=== PATIENT | female | born 1945 | race Caucasian/White ===

== ENCOUNTER → 2016-09-24 | Outpatient (CLI) | payer BC ==
[~2016-09-24] MED LIST: ALBU1AER9 INH; CALC8.5C PO; ESCI1TAB10 PO; IMT100 PO; LEVO88TA PO; LORA0.5T12 PO; MAGNESIUM; MULT-614 PEG
--- NOTE | 2016-09-24 14:34 | MAMMOGRAPHY REPORT ---
BILATERAL DIGITAL SCREENING MAMMOGRAM WITH CAD: 09/24/2016 CLINICAL HISTORY: Routine screening. Patient has no complaints. TECHNIQUE: Bilateral CC, MLO and repeat right MLO views were obtained. Current study was also evalu ated with a Computer Aided Detection (CAD) system. COMPARISON: Comparison is made to exams dated: 09/19/2015 mammogram, 09/15/2014 mammogram, 09/06/2013 m ammogram, 09/03/2012 mammogram, 08/23/2010 mammogram, and 08/22/2009 mammogram - [facility] enter. BREAST COMPOSITION: The tissue of both breasts is heterogeneously dense, which may obscure small ma sses. FINDINGS: There is a focal asymmetry in the approximate 10:00 to 11:00 anterior left breast. Altho ugh this could represent normal overlapping fibroglandular tissue, additional spot compression tomos ynthesis views and possibly ultrasound are recommended. There are scattered benign-appearing coarse calcifications in the breasts. No other suspicious mass, architectural distortion or cluster of microcalcifications is seen. IMPRESSION: ACR BI-RADS CATEGORY 0: INCOMPLETE EVALUATION: NEED ADDITIONAL IMAGING EVALUATION The focal asymmetry in the anterior left breast needs additional evaluation. The patient will be called to schedule an appointment. Approximately 10% of breast cancers are not detected with mammography. A negative mammographic repor t should not delay biopsy if a clinically suggestive mass is present. Karen Andres M.D. ay/:09/24/2016 08:06:45 Custom Shop Worker: Marisela Mckenna, [facility] letter sent: Addl Imaging 0 BI-RADS Code: ACR BI-RADS Category 0: Incomplete Evaluation: Need Additional Imaging Evaluation
== END | disposition home or self-care (01) ==
LOC: C.MAMM 07:29
PROVIDERS: ATTEND Obstetrics & Gynecology
DX: Z12.31 Encounter for screening mammogram for malignant neoplasm of breast (principal)

== ENCOUNTER → 2016-10-01 | Outpatient (CLI) | payer BC ==
--- NOTE | 2016-10-01 13:33 | MAMMOGRAPHY REPORT ---
UNILATERAL LEFT DIGITAL DIAGNOSTIC MAMMOGRAM TOMOSYNTHESIS: 10/01/2016 CLINICAL HISTORY: Callback from screening mammogram for left breast asymmetry. TECHNIQUE: Breast tomosynthesis in addition to standard 2D mammography was performed. Spot dilcia lashawn left CC and MLO 2-D and tomosynthesis images were obtained. COMPARISON: Comparison is made to exams dated: 09/24/2016 mammogram, 09/19/2015 mammogram, 09/06/2013 m ammogram, 09/15/2014 mammogram, 09/03/2012 mammogram, and 08/29/2011 mammogram - [facility] enter. BREAST COMPOSITION: The tissue of the left breast is heterogeneously dense, which may obscure small masses. FINDINGS: The previously described asymmetry seen within the left breast effaces to a baseline appea lior on the additional views, with appearance of this region similar to multiple prior exams includ ing the 2010 and 2008 exams. No suspicious masses, architectural distortion, or other suspicious fi nding is seen in this region on the tomosynthesis images. Findings are benign and compatible with n ormal fibroglandular tissue. IMPRESSION: ACR BI-RADS CATEGORY 2: BENIGN The left breast asymmetry effaces on the additional views, and is benign and compatible with normal fibroglandular tissue. There is no mammographic evidence of malignancy. A 1 year screening mammogra m is recommended. The patient has been verbally notified of the results. Approximately 10% of breast cancers are not detected with mammography. A negative mammographic repor t should not delay biopsy if a clinically suggestive mass is present. Teresa Mae M.D. /:10/01/2016 09:47:18 Equipment Operation Instructor: Marisela Mckenna, [facility] letter sent: Normal 1/2 BI-RADS Code: ACR BI-RADS Category 2: Benign
== END | disposition home or self-care (01) ==
LOC: C.MAMM 09:13
PROVIDERS: ATTEND Obstetrics & Gynecology
DX: N64.89 Other specified disorders of breast (principal)

== ENCOUNTER → 2017-04-21 | Outpatient (CLI) | payer BC ==
[2017-04-21 09:50] LABS: BLOOD UREA NITROGEN 22 mg/dl (7-18); BUN/CREATININE RATIO 37.1 (10-20); CALCIUM 8.5 mg/dl (8.5-10.1); CARBON DIOXIDE 28 mmol/L (21-32); CHLORIDE 106 mmol/L (98-107); GLUCOSE 108 mg/dl (70-99); SODIUM 141 mmol/L (136-145)
[2017-04-21 09:58] LABS: ESTIMATED AVERAGE GLUCOSE 114 mg/dl; HA1C FLAG Normal (Normal)
[2017-04-21 10:03] LABS: CHOLESTEROL 189 mg/dl (0-200); CHOLESTEROL/HDL RATIO 1.9; HDL CHOLESTEROL 102 mg/dl; LDL CHOLESTEROL CALCULATED 76 mg/dl; TRIGLYCERIDES 55 mg/dl (0-150); VERY LOW DENSITY LIPOPROT CALC 11 mg/dl
== END | disposition home or self-care (01) ==
LOC: C.LAB1850 07:51
PROVIDERS: ATTEND Internal Medicine
DX: E03.9 Hypothyroidism, unspecified (principal); E88.81 Metabolic syndrome and other insulin resistance; R73.9 Hyperglycemia, unspecified

== ENCOUNTER → 2017-09-28 | Outpatient (CLI) | payer BC ==
--- NOTE | 2017-09-28 14:12 | MAMMOGRAPHY REPORT ---
BILATERAL DIGITAL SCREENING MAMMOGRAM TOMOSYNTHESIS WITH CAD: 09/28/2017 CLINICAL HISTORY: Routine screening. Patient has no complaints. TECHNIQUE: Breast tomosynthesis in addition to standard 2D mammography was performed. Current study was also evaluated with a Computer Aided Detection (CAD) system. COMPARISON: Comparison is made to exams dated: 10/01/2016 mammogram, 09/24/2016 mammogram, 09/19/2015 ma mmogram, 09/15/2014 mammogram, 09/06/2013 mammogram, and 09/03/2012 mammogram - [facility] er. BREAST COMPOSITION: The tissue of both breasts is heterogeneously dense, which may obscure small mas ses. FINDINGS: The parenchymal pattern is similar to prior mammograms. There are a few benign coarse taylor cifications bilaterally. No developing mass, architectural distortion or cluster of suspicious micro calcifications is seen in either breast. IMPRESSION: ACR BI-RADS CATEGORY 2: BENIGN There is no mammographic evidence of malignancy. A 1 year screening mammogram is recommended. The pa tient will receive written notification of the results. Approximately 10% of breast cancers are not detected with mammography. A negative mammographic report should not delay biopsy if a clinically suggestive mass is present. Karen Andres M.D. ay/:09/28/2017 13:40:44 Wood Sash And Frame Carpenter: Marisela RAMIREZ)(M), [facility] letter sent: Normal 1/2 BI-RADS Code: ACR BI-RADS Category 2: Benign
== END | disposition home or self-care (01) ==
LOC: C.MAMM 08:10
PROVIDERS: ATTEND Obstetrics & Gynecology
DX: Z12.31 Encounter for screening mammogram for malignant neoplasm of breast (principal)

== ENCOUNTER → 2017-10-21 | Outpatient (CLI) | payer BC ==
[2017-10-21 10:01] LABS: BLOOD UREA NITROGEN 15 mg/dl (7-18); CREATININE 0.58 mg/dl (0.60-1.20); GLUCOSE 103 mg/dl (70-99)
[2017-10-21 10:02] LABS: ALBUMIN 3.5 gm/dl (3.4-5.0); ALKALINE PHOSPHATASE 58 U/L (45-117); ALT/SGPT 33 U/L (12-78); AST/SGOT 18 U/L (15-37); CALCIUM 8.2 mg/dl (8.5-10.1); CARBON DIOXIDE 25 mmol/L (21-32); CHOLESTEROL 194 mg/dl (0-200); LDL CHOLESTEROL CALCULATED 86 mg/dl; POTASSIUM 3.9 mmol/L (3.5-5.1); SODIUM 139 mmol/L (136-145); TOTAL PROTEIN 7.2 gm/dl (6.4-8.2)
[2017-10-21 10:06] LABS: HEMOGLOBIN A1C 5.6 % (4.5-5.6)
== END | disposition home or self-care (01) ==
LOC: C.LAB1850 08:00
PROVIDERS: ATTEND Internal Medicine
DX: R73.9 Hyperglycemia, unspecified (principal); M85.80 Other specified disorders of bone density and structure, unspecified site; E03.9 Hypothyroidism, unspecified

== ENCOUNTER → 2018-01-01 | Day surgery (SDC) | payer BC ==
[2017-12-22 08:16] VITALS: Ht 148.6 cm; Wt 55.5 kg
[~2018-01-01] VITALS: Ht 148.6 cm; Wt 55.5 kg
[~2018-01-01] MED LIST changes: -ALBU1AER9 INH; +BUPR-79 PO; -ESCI1TAB10 PO; +LIDOCAINE HCL 2% 2 ML VIAL (20MG/ML) ONE; -MAGNESIUM; +MISCCAP80 PO; -MULT-614 PEG; +MULT-614 PO; +PROPOFOL IV EMULSION 10 MG/ML 20 ML VIAL ONE; +SERT-234 PO; +SLWMEC PO; +SODIUM CHLORIDE 0.9% 500ML 500 ML IV ONE; +VNTHFA/IN INH
--- NOTE | 2018-01-01 11:14 | Endo History and Physical ---
History & Physical Date of Service: Jan 01, 2018. Chief Complaint: History of polyps Referring Physician: Dr. Rosas Green History of Present Illness 72 yo CF who presents for colonoscopy secondary to history of colon polyps. Past Medical History Asthma, Anxiety, Thyroid Disease Past Surgical History Hx Cardiac Surgery: No Hx Internal Defibrillator: No Hx Pacemaker: No Hx Abdominal Surgery: No Hx of Implantable Prosthesis: No Hx Post-Op Nausea and Vomiting: No Hx Cancer Surgery: No Hx Thoracic Surgery: No Hx Orthopedic: Yes (REPAIR FINGER LACERATION) Hx Urinary Tract Surgery: No Family History None Social History Smoking Status: Never Smoker Hx Substance Use: No Hx Alcohol Use: No Allergies Coded Allergies: Dust (Verified Allergy, Unknown, COUGHING,CONGESTION, 12/22/17) Shellfish (Verified Allergy, Unknown, RASH,HIVES,DIARRHEA, 12/22/17) Ibuprofen (Verified Adverse Reaction, Unknown, SORE THROAT, 01/01/18) Sulfa Drugs (Verified Adverse Reaction, Unknown, THROAT CLOSING, 01/01/18) Sulindac (Verified Adverse Reaction, Unknown, "SORE THROAT", 01/01/18) Current Medications Reported Home Medications Medications Dose Route/Sig Max Daily Dose Days Date Category Probiotic (Probiotic Product) 1 Cap Cap 1 Tab PO QAM 12/22/17 Reported Slow-Mag Tab (Magnesium Chloride) 64 Mg Tabcr 64 Mg PO QPM 12/22/17 Reported Wellbutrin Sr (Bupropion HCl) 150 Mg Ertab 150 Mg PO QAM 12/22/17 Reported Zoloft (Sertraline HCl) 100 Mg Tab 100 Mg PO HS 12/22/17 Reported Ventolin Hfa (Albuterol) 200 Puffs/87472 Mcg Aers 2-4 Puffs INH Q6H 12/22/17 Reported Viactiv (Calcium W/ Vitamins D & K) 1 Chw Chw 1 Tab PO BID 07/27/14 Reported Imitrex (Sumatriptan Succinate) 100 Mg Tab 100 Mg PO UD PRN 07/27/14 Reported Lorazepam 0.5 Mg Tab 0.5 Mg PO BID PRN 07/27/14 Reported Synthroid (Levothyroxine Sodium) 88 Mcg Tab 88 Mcg PO QAM 07/27/14 Reported Centrum Silver Ultra Wome (Multiple Vitamins W/ Minerals) 1 Tab Tab 1 Tab PO QPM 07/27/14 Reported Vital Signs Weight (Kilograms): 55.45 Height (Feet): 4 Height (Inches): 10.5 Date Time Temp Pulse Resp B/P (MAP) Pulse Ox O2 Delivery O2 Flow Rate FiO2 01/01/18 10:56 36.8 69 18 148/66 (93) 95 Room Air Physical Exam General Appearance: WD/WN, no apparent distress Respiratory/Chest: Auscultation: breath sounds normal Cardiovascular: Heart Auscultation: RRR Abdomen: Bowel Sounds: normal Inspection & Palpation: soft, non-distended, no tenderness, guarding & rebound Assessment and Plan Assessment: 72 yo CF who presents for colonoscopy secondary to history of colon polyps. Plan: Proceed with colonoscopy.
--- NOTE | 2018-01-01 11:59 | Discharge Instructions ---
Endoscopy Patient Instructions Date / Procedure(s) Performed Jan 01, 2018. Colonoscopy Allergy Information Coded Allergies: Dust (Verified Allergy, Unknown, COUGHING,CONGESTION, 12/22/17) Shellfish (Verified Allergy, Unknown, RASH,HIVES,DIARRHEA, 12/22/17) Ibuprofen (Verified Adverse Reaction, Unknown, SORE THROAT, 01/01/18) Sulfa Drugs (Verified Adverse Reaction, Unknown, THROAT CLOSING, 01/01/18) Sulindac (Verified Adverse Reaction, Unknown, "SORE THROAT", 01/01/18) Discharge Date / Findings Jan 01, 2018. Colon polyp Internal hemorrhoids Medication Instructions OK to resume all medications today as prescribed Reported Home Medications Medications Dose Route/Sig Max Daily Dose Days Date Category Probiotic (Probiotic Product) 1 Cap Cap 1 Tab PO QAM 12/22/17 Reported Slow-Mag Tab (Magnesium Chloride) 64 Mg Tabcr 64 Mg PO QPM 12/22/17 Reported Wellbutrin Sr (Bupropion HCl) 150 Mg Ertab 150 Mg PO QAM 12/22/17 Reported Zoloft (Sertraline HCl) 100 Mg Tab 100 Mg PO HS 12/22/17 Reported Ventolin Hfa (Albuterol) 200 Puffs/74182 Mcg Aers 2-4 Puffs INH Q6H 12/22/17 Reported Viactiv (Calcium W/ Vitamins D & K) 1 Chw Chw 1 Tab PO BID 07/27/14 Reported Imitrex (Sumatriptan Succinate) 100 Mg Tab 100 Mg PO UD PRN 07/27/14 Reported Lorazepam 0.5 Mg Tab 0.5 Mg PO BID PRN 07/27/14 Reported Synthroid (Levothyroxine Sodium) 88 Mcg Tab 88 Mcg PO QAM 07/27/14 Reported Centrum Silver Ultra Wome (Multiple Vitamins W/ Minerals) 1 Tab Tab 1 Tab PO QPM 07/27/14 Reported Provider Instructions Activity Restrictions - No exercising or heavy lifting for 24 hours. - Do not drink alcohol the day of the procedure. - Do not drive a car or operate machinery until the day after the procedure. - Do not make any important decisions or sign important papers in 24 hours after the procedure. Following Day: - Return to full activity which may include returning to work/school. Diet Start your diet with liquids and light foods (jello, soup, juice, toast). Then eat your usual diet if not nauseated. Treatment For Common After Affects For mild abdominal pain, bloating, or excessive gas: - Rest - Eat lightly - Lie on right side Follow-Up Information Follow-up with Dr. Rosas Green as scheduled Anesthesia Information What You Should Know You have had a procedure that required some medicine to reduce anxiety and discomfort. This treatment is called moderate sedation. After receiving the treatment, you may be sleepy, but you will be able to breathe on your own. The effects of the treatment may last for several hours. Follow these instructions along with Activity/Diet recommendations noted above: * Do NOT do anything where dizziness or clumsiness would be dangerous. * Rest quietly at home today, then you can be up and about tomorrow. * Have a responsible person stay with you the rest of today. * You may have had an I.V. today. If so, you may take the dressing off later today. Recommendations Call your doctor if: * Trouble breathing * Continuous vomiting for more than 24 hours * Temperature above 101 degrees * Severe abdominal pain or bloating * Pain not relieved by pain medicine ordered * There is increased drainage or redness from any incision * A large amount of rectal bleeding greater than 2-3 tablespoons. (If you had a polyp/s removed or have hemorrhoids, a small amount of blood - from the rectum is to be expected.) * You have any unanswered questions or concerns. IN THE EVENT OF A SERIOUS EMERGENCY, GO TO THE NEAREST EMERGENCY ROOM Your discharge instructions were prepared by provider Kee Daniels. Patient Instructions Signature Page Sri Cross Patient (or Guardian) Signature/Date: I have read and understand the instructions given to me by my caregivers. Caregiver/RN/Doctor Signature/Date: The above-named patient and/or guardian has received patient instructions on this date. + Original Patient Signature Page (only) stays with chart. Please make copy for patient.
--- NOTE | 2018-01-01 12:04 | GI REPORT ---
Patient Name: Sri Cross Procedure Date: 01/01/2018 11:20 AM Date of : 1945 Admit Type: Outpatient Age: 72 Gender: Female Attending MD: Kee Daniels DO Procedure: Colonoscopy Providers: Kee Daniels DO Referring MD: Rosas Green Indications: High risk colon cancer surveillance: Personal history of colonic polyps Medicines: Monitored Anesthesia Care Complications: No immediate complications. Estimated Blood Loss: Estimated blood loss: none. Procedure: Pre-Anesthesia Assessment: - Prior to the procedure, a History and Physical was performed, and patient medications and allergies were reviewed. The patient's tolerance of previous anesthesia was also reviewed. The risks and benefits of the procedure and the sedation options and risks were discussed with the patient. All questions were answered, and informed consent was obtained. Prior Anticoagulants: The patient has taken no previous anticoagulant or antiplatelet agents. ASA Grade Assessment: II - A patient with mild systemic disease. After reviewing the risks and benefits, the patient was deemed in satisfactory condition to undergo the procedure. After I obtained informed consent, the scope was passed under direct vision. Throughout the procedure, the patient's blood pressure, pulse, and oxygen saturations were monitored continuously. The scope was introduced through the anus and advanced to the terminal ileum. The colonoscopy was performed without difficulty. The patient tolerated the procedure well. The quality of the bowel preparation was good. The terminal ileum, ileocecal valve, appendiceal orifice, and rectum were photographed. Findings: The perianal and digital rectal examinations were normal. A 8 mm polyp was found in the cecum. The polyp was flat. The polyp was removed with a hot snare. Resection and retrieval were complete. Non-bleeding internal hemorrhoids were found during retroflexion. The hemorrhoids were small. Impression: - One 8 mm polyp in the cecum, removed with a hot snare. Resected and retrieved. - Non-bleeding internal hemorrhoids. Recommendation: - Resume previous diet. - Continue present medications. - Repeat colonoscopy for surveillance based on pathology results. - Return to primary care physician as previously scheduled. Kee Daniels DO 01/01/2018 12:04:18 PM This report has been signed electronically. Note Initiated On: 01/01/2018 11:20 AM Number of Addenda: 0 I attest to the content of the Intraoperative Record and orders documented therein, exceptions below {[id number]}
[2018-01-01 12:31] VITALS: BP 143/81; PULSE 61; O2SAT 97
--- NOTE | 2018-01-01 13:18 | Anesthesiology Progress Note ---
Anesthesia Post Op Note Date & Time Jan 01, 2018 at 13:18 Vital Signs Pain Intensity: 0 Vital Signs Past 12 Hours Date Time Temp Pulse Resp B/P (MAP) Pulse Ox O2 Delivery O2 Flow Rate FiO2 01/01/18 12:31 61 18 143/81 (101) 97 Room Air 01/01/18 12:16 59 18 135/71 (92) 97 Room Air 01/01/18 12:01 36.0 75 16 114/55 (74) 99 Room Air 01/01/18 10:56 36.8 69 18 148/66 (93) 95 Room Air Notes Mental Status: alert / awake / arousable, participated in evaluation Pt Amnestic to Procedure: Yes Nausea / Vomiting: adequately controlled Pain: adequately controlled Airway Patency, RR, SpO2: stable & adequate BP & HR: stable & adequate Hydration State: stable & adequate Anesthetic Complications: no major complications apparent
== END | disposition home or self-care (01) ==
LOC: C.GI 10:36
PROVIDERS: ATTEND Internal Medicine
DX: Z12.11 Encounter for screening for malignant neoplasm of colon (principal); D12.0 Benign neoplasm of cecum; K64.8 Other hemorrhoids; J45.909 Unspecified asthma, uncomplicated; E07.9 Disorder of thyroid, unspecified; Z86.010 Personal history of colon polyps; Z88.2 Allergy status to sulfonamides; Z91.013 Allergy to seafood

== ENCOUNTER → 2018-01-11 | Outpatient (CLI) | payer BC ==
[~2018-01-11] MED LIST changes: -LIDOCAINE HCL 2% 2 ML VIAL (20MG/ML) ONE; -PROPOFOL IV EMULSION 10 MG/ML 20 ML VIAL ONE; -SODIUM CHLORIDE 0.9% 500ML 500 ML IV ONE
== END | disposition home or self-care (01) ==
LOC: C.PAPS 18:11
PROVIDERS: ATTEND Obstetrics & Gynecology
DX: Z01.419 Encounter for gynecological examination (general) (routine) without abnormal findings (principal)

== ENCOUNTER 2022-08-17 10:20 | Inpatient (IN) ==
[2022-08-17] MEDS ORDERED: fentaNYL citrate PF 100 MCG/2 ML VIAL IV STA (10:28)
[2022-08-17 10:57] LABS: Basophils # (auto) 0.05 K/uL (0-0.2); Basophils % (auto) 0.3 %; Eosinophils # (auto) 0.01 K/uL (0-0.50); Eosinophils % (auto) 0.1 %; Hematocrit (blood only) 41.8 % (37.0-47.0); Hemoglobin 14.6 g/dl (12.0-16.0); Immature Granulocytes # (auto) 0.08 K/uL (0.01-0.20); Immature Granulocytes % (auto) 0.5 %; Lymphocytes # (auto) 0.81 K/uL (1.2-3.4); Mean Corpuscular Hemoglobin 34.2 pg (25.0-34.0); Mean Corpuscular Hgb Conc 34.9 g/dL (32.0-36.0); Mean Corpuscular Volume 97.9 fL (80.0-100.0); Mean Platelet Volume 9.8 fL (9.4-12.4); Monocytes # (auto) 0.98 K/uL (0.11-0.59); Neutrophils # (auto) 14.36 K/uL (1.40-6.50); Neutrophils % (auto) 88.1 %; Platelet Count 250 K/uL (130-400); RDW Coefficient of Variation 11.9 % (11.5-14.5); Red Blood Count 4.27 M/uL (4.20-5.40); White Blood Count 16.29 K/ul (4.8-10.8)
[2022-08-17 11:00] LABS: Appearance Urine Clear (Clear); Bacteria Urine Automated Negative (Negative); Bilirubin Urine Negative (Negative); Blood Urine 2+ (Negative); Cast Urine Automated 0 /lpf (0-5); Color Urine Yellow; Glucose Urine UA Trace (Negative); Ketones Urine Negative (Negative); Leukocyte Esterase Urine Negative (Negative); Nitrite Urine Negative (Negative); Protein Urine Negative (Negative); Specific Gravity Urine 1.012 (1.000-1.030); Urobilinogen Urine Negative (Negative); WBC Urine Automated 0 /hpf (0-5)
--- NOTE | 2022-08-17 11:15 | CT Scan Report ---
HEAD CT NONCONTRAST CT DOSE: HISTORY: fall, hit head TECHNIQUE: Multiaxial CT images of the head were performed without the use of intravenous contrast. A utomated exposure control was utilized for this study. A dose lowering technique was utilized adheri ng to the principles of ALARA. Comparison: None. Findings: The paranasal sinuses and mastoid air cells are clear. The calvarium and skull base are int act. There is no mass, hematoma, midline shift, acute infarct. White matter hypodensity is nonspecifi c but suggestive of microvascular ischemic change. The ventricles and sulci demonstrate mild age-rela destinee involutional changes. 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 Impression: No acute intracranial abnormality. Atrophy and microvascular ischemic changes. ACT 112: Negative or not required by law. Electronically signed by: Trevor Motta M.D. 08/17/2022 11:13 AM
[2022-08-17 11:16] LABS: Alanine Aminotransferase 29 U/L (7-52); Albumin Globulin Ratio 1.2 (0.9-2); Albumin Level 4.1 gm/dl (3.4-5.0); Alkaline Phosphatase 67 U/L (34-104); Anion Gap 8 (3-11); Aspartate Aminotransferase 24 U/L (13-39); BUN Creatinine Ratio 33.3 (10-20); Bilirubin,Total 0.5 mg/dl (0.2-1.0); Blood Urea Nitrogen 17 mg/dl (6-23); Calcium 8.7 mg/dl (8.5-10.1); Carbon Dioxide 28 mmol/L (21-32); Chloride 103 mmol/L (98-107); Creatine Kinase 54 U/L (26-192); Est GFR (African American) 106.7 ml/min; Est GFR (Non-African American) 92.1 ml/min; Globulin 3.4 gm/dl (2.5-4.0); Glucose 159 mg/dl (70-99(Fasting)); Potassium 3.8 mmol/L (3.5-5.1); Sodium 139 mmol/L (136-145); Total Protein 7.5 gm/dl (6.0-8.3)
--- NOTE | 2022-08-17 11:19 | CT Scan Report ---
CERVICAL SPINE CT CT DOSE: 1052.14 mGy.cm HISTORY: fall TECHNIQUE: Multiaxial CT images of the cervical spine were performed and reformatted in the sagittal and coronal plane without the use of contrast. A dose lowering technique was utilized adhering to e principles of ALARA. COMPARISON: None. FINDINGS: No fractures. Mild anterolisthesis of C7 on T1 is likely due to long-standing degenerative change. Mild to moderate degenerative changes within the cervical spine. There is straightening of th e cervical spine. Prevertebral soft tissues and the C1-C2 interval are intact. No pneumothorax. IMPRESSION: No fractures within the cervical spine. ACT 112: Negative or not required by law. Electronically signed by: Trevor Motta M.D. 08/17/2022 11:16 AM
--- NOTE | 2022-08-17 11:30 | Emergency Department Note ---
Impression & Plan Fall, Closed right femoral fracture ED Provider Note Provider: Norberto Sims MD DATE OF SERVICE: 08/17/2022 CHIEF COMPLAINT: Fall HISTORY OF PRESENT ILLNESS: Patient is a 77-year-old female history of osteoporosis and hypothyroidism Presenting via ambulance from home after found her on the floor today. Patient evidently went to use the bathroom and was found on the floor by her this morning. Was down for at least several hours but the exact circumstance of the fall and how long are a bit obscured. Patient does not remember the exact circumstances. Complains of sign ificant pain in the right hip. Received multiple doses of morphine for EMS. Denies significant headache but does states she hit her head. Denies loss of conscious to the best of her memory. Denies syncope injury to her chest, arms, or left leg. Has been unable to walk any did have bowel movement while in the floor and is covered in stool. Denies abdominal pain to me. Denies use of anticoagulants. PAST MEDICAL HISTORY: As noted above MEDICATIONS: Reviewed home medications SOCIAL HISTORY: and lives at home PHYSICAL EXAM: GENERAL: alert and oriented on stretcher somewhat hard of hearing Head: normocephalic and atraumatic EYES: No injection, discharge or icterus. PERRL NECK: Trachea midline. Supple without significant midline tenderness ENT: Mucous membranes pink and moist. LUNGS: Airway patent. No retractions. Breath sounds clear with good air entry bilaterally. HEART: Regular rate and rhythm. No chest wall tenderness ABDOMEN: Soft and non-tender, without guarding or rebound. No bilateral flank tenderness. SKIN: Acyanotic, warm, dry, without rashes EXTREMITIES: Without swelling, tenderness or deformity except for significant pain with any movement of the right hip region with some slight contusion and pain of the right knee on exam. 2+ right DP pulse with intact sensation of the right foot. NEUROLOGICAL: Slightly tremulous. Moving extremities but limited the right lower extremity due to pain of the right hip. No aphasia. No facial droop or slurred speech. Intact sensation of the extremities. EK bpm normal sinus rhythm without PVC or PAC. Some baseline artifact with a QTc of 444. No acute ST segment elevation or depression noted. CONTINUOUS CARDIAC MONITORING: was ordered and showed a heart rate of 90s bpm in normal sinus rhythm GCS 15. Patient's laboratory studies and imaging reviewed. Differential includes Fracture, dislocation, contusion, intra-abdominal, pneumothorax, intrathoracic, intracranial, neurologic, compartment syndrome, rhabdomyolysis, as well as other pathologies. IMPRESSION/MEDICAL DECISION MAKING: Patient with a fall of unclear etiology. Significant right hip and leg pain. X-rays obtained here as well as CT of the head and cervical spine. Did hit her head but did not lose consciousness. No significant focal deficit but limited pain to the hip region. Basic labs obtained including CK to help exclude rhabdomyolysis. EKG without significant arrhythmia. Proceed morphine prior to arrival for EMS and given additional IV fentanyl here to help with pain in the hip region. later arrives with additional history and again is still unclear exactly how she fell or how long she was on the floor. States she gets imbalance frequently. Blood work without anemia but a leukocytosis. May be reactive. Also found covered in feces unsure if this is related to illness or the reason why she fell that she was going to the bathroom. No significant electrolyte abnormality or signs of transaminitis. Negative COVID here. Negative urinalysis. X-rays of the knees without acute findings of the x-ray of the right hip shows evidence of intracranial tach right hip fracture with some extension of the proximal femur shaft. Discussed with patient and at bedside. Requiring low but oxygen after the pain medicine but not delirious. They requested Dr. Banks from orthopedics and discussed with the on-call group for [facility] orthopedics. Discussed with the hospitalist for further care. Given some IV Tylenol is still having pain. DIAGNOSIS: Fall, right femur fracture DISPOSITION: Hospitalist will evaluate Patient was agreeable with this plan. Past Med/Surg History Medical History (Updated 08/17/22 @ 12:24 by Norberto Sims M.D.) Allergic rhinitis Encounter for hepatitis C screening test for low risk patient refused Hyperglycemia Hypothyroidism Insomnia Osteoporosis Panic attacks Surgical History History of colonoscopy (2005) Hx of colonoscopy (2018) Family History Aunt Breast cancer Mother Cancer Stomach Cancer Father Hypertension Prostate cancer Diabetes Grandmother (Paternal) Myocardial infarction Denies family history of Ovarian cancer Social History Smoking Status: Never smoker Hx Alcohol Use: No Hx Substance Use: No Preferred Language: [place] Visual Impairment: No Limitations Hearing Ability: Use of Hearing Aid Beliefs That Will Affect Care: None marital status: Current Living Situation: Spouse current occupational status: retired Feels Safe at Home: Yes Childhood Exposure to Second-Hand Smoke: No Dental Care, Regularly: Yes Physical Activity Frequency: 3-4 Times per Week Seatbelt Use: always Sunscreen Use: No Allergies Allergies Allergy/AdvReac Type Severity Reaction Status Date / Time shellfish derived Allergy Unknown RASH,HIVES, Verified 08/17/22 12:15 DIARRHEA ibuprofen AdvReac Unknown SORE THROAT Verified 08/17/22 12:15 Sulfa (Sulfonamide AdvReac Unknown THROAT Verified 08/17/22 12:15 Antibiotics) CLOSING sulindac AdvReac Unknown "SORE Verified 08/17/22 12:15 THROAT" Advil CAPS Allergy Mild Hives Uncoded 08/17/22 12:15 [place] TABS Allergy Mild Rash Uncoded 08/17/22 12:15 Dust Allergy Unknown COUGHING,CO Uncoded 08/17/22 12:15 NGESTION Home Meds Home Medications Medication Instructions Recorded Confirmed calcium-vitamin D3-vitamin K 500 2 tab PO BID 05/11/19 08/17/22 mg-500 unit-40 mcg chewable tablet lactobacillus combo #5 150 mg (2 0 mg PO DAILY 08/17/22 08/17/22 billion cell) tablet,delayed release Previous Rx's Medication Instructions Recorded cholecalciferol (vitamin D3) 50 50 mcg PO DAILY #30 tabs 10/21/19 mcg (2,000 unit) tablet albuterol sulfate 90 mcg/actuation 2 puff inhalation Q4H PRN 07/25/20 aerosol inhaler (ProAir HFA) shortness of breath or wheezing #18 grams sumatriptan succinate 100 mg tablet 100 mg PO Q2H PRN migraine 07/15/21 headache #10 tabs lorazepam 0.5 mg tablet 0.25 - 0.5 mg PO HS PRN anxiety 06/24/22 #30 tabs bupropion HCl 150 mg 24 hr tablet, 150 mg PO QAM #90 tabs 07/11/22 extended release levothyroxine 88 mcg tablet 88 mcg PO DAILY #90 tabs 07/11/22 sertraline 100 mg tablet 100 mg PO DAILY #90 tabs 07/11/22 Results & Data (ED) Vital Signs Vital Signs - 24 hr 08/17/22 10:22 08/17/22 10:32 08/17/22 10:32 Temperature 36.5 C Temperature Source Oral Pulse Rate 95 H 95 H Pulse Rate [Right Apical] 95 H Pulse Rate from SpO2 Sensor Respiratory Rate 18 20 20 Respiratory Effort / Characteristics Non-Labored Spontaneous Non-Labored Spontaneous Respiratory Depth Normal Normal Respiratory Pattern Regular Regular Blood Pressure 223/110 H Blood Pressure [Right Arm] 233/130 H Blood Pressure Mean 147 Blood Pressure Mean [Right Arm] 164 Blood Pressure Position Lying Blood Pressure Position [Right Arm] Lying Pulse Oximetry 95 96 96 Oxygen Delivery Method Room Air Room Air Room Air Sepsis Recent Fever Within 48 Hours No Sepsis New/Unexplained Change in Mental Status No Sepsis Action Taken by Nursing No Action Required Oxygen Flow Rate - Titration Pulse Oximetry Post Tiitration 08/17/22 11:09 08/17/22 11:18 08/17/22 11:12 Temperature Temperature Source Pulse Rate 90 Pulse Rate [Right Apical] Pulse Rate from SpO2 Sensor Respiratory Rate 20 26 H Respiratory Effort / Characteristics Non-Labored Spontaneous Respiratory Depth Normal Respiratory Pattern Regular Blood Pressure 175/94 H Blood Pressure [Right Arm] Blood Pressure Mean 121 Blood Pressure Mean [Right Arm] Blood Pressure Position Blood Pressure Position [Right Arm] Pulse Oximetry 96 87 L 95 Oxygen Delivery Method Room Air Room Air Room Air Sepsis Recent Fever Within 48 Hours Sepsis New/Unexplained Change in Mental Status Sepsis Action Taken by Nursing Oxygen Flow Rate - Titration 3 Pulse Oximetry Post Tiitration 96 08/17/22 11:30 08/17/22 11:56 08/17/22 12:35 Temperature Temperature Source Pulse Rate 90 96 H Pulse Rate [Right Apical] Pulse Rate from SpO2 Sensor 90 Respiratory Rate 24 Respiratory Effort / Characteristics Respiratory Depth Respiratory Pattern Blood Pressure Blood Pressure [Right Arm] Blood Pressure Mean Blood Pressure Mean [Right Arm] Blood Pressure Position Blood Pressure Position [Right Arm] Pulse Oximetry 96 92 Oxygen Delivery Method Room Air Sepsis Recent Fever Within 48 Hours Sepsis New/Unexplained Change in Mental Status Sepsis Action Taken by Nursing Oxygen Flow Rate - Titration Pulse Oximetry Post Tiitration 08/17/22 12:30 08/17/22 12:54 08/17/22 13:00 Temperature Temperature Source Pulse Rate 91 H 89 89 Pulse Rate [Right Apical] Pulse Rate from SpO2 Sensor 91 H 89 89 Respiratory Rate 19 17 18 Respiratory Effort / Characteristics Respiratory Depth Respiratory Pattern Blood Pressure 175/94 H 153/85 H 144/82 H Blood Pressure [Right Arm] Blood Pressure Mean 121 107 102 Blood Pressure Mean [Right Arm] Blood Pressure Position Blood Pressure Position [Right Arm] Pulse Oximetry 93 92 90 Oxygen Delivery Method Room Air Room Air Room Air Sepsis Recent Fever Within 48 Hours Sepsis New/Unexplained Change in Mental Status Sepsis Action Taken by Nursing Oxygen Flow Rate - Titration Pulse Oximetry Post Tiitration Laboratory Data 08/17/22 10:43 08/17/22 10:43 Lab Results 08/17/22 08/17/22 08/17/22 Range/Units 10:43 10:43 10:43 WBC 16.29 H (4.8-10.8) K/ul RBC 4.27 (4.20-5.40) M/uL Hgb 14.6 (12.0-16.0) g/dl Hct 41.8 (37.0-47.0) % MCV 97.9 (80.0-100.0) fL MCH 34.2 H (25.0-34.0) pg MCHC 34.9 (32.0-36.0) g/dL RDW Std Deviation 43.0 (36.4-46.3) fL RDW Coeff of Rah 11.9 (11.5-14.5) % Plt Count 250 (130-400) K/uL MPV 9.8 (9.4-12.4) fL Immature Gran % (Auto) 0.5 % Neut % (Auto) 88.1 % Lymph % (Auto) 5.0 % [place] % (Auto) 6.0 % Eos % (Auto) 0.1 % Baso % (Auto) 0.3 % Neut # (Auto) 14.36 H (1.40-6.50) K/uL Lymph # (Auto) 0.81 L (1.2-3.4) K/uL [place] # (Auto) 0.98 H (0.11-0.59) K/uL Eos # (Auto) 0.01 (0-0.50) K/uL Baso # (Auto) 0.05 (0-0.2) K/uL Immature Gran # (Auto) 0.08 (0.01-0.20) K/uL PT 10.7 (9.0-12.0) Seconds INR 1.0 (0.9-1.1) Sodium 139 (136-145) mmol/L Potassium 3.8 (3.5-5.1) mmol/L Chloride 103 (98-107) mmol/L Carbon Dioxide 28 (21-32) mmol/L Anion Gap 8 (3-11) BUN 17 (6-23) mg/dl Creatinine 0.51 L (0.6-1.2) mg/dl Est Cr Clr Drug Dosing Not Reportable Est GFR ( Amer) 106.7 ml/min Est GFR (Non-Af Amer) 92.1 ml/min BUN/Creatinine Ratio 33.3 H (10-20) Glucose 159 H (70-99(Fasting)) mg/dl Calcium 8.7 (8.5-10.1) mg/dl Total Bilirubin 0.5 (0.2-1.0) mg/dl AST 24 (13-39) U/L ALT 29 (7-52) U/L Alkaline Phosphatase 67 (34-104) U/L Total Creatine Kinase 54 (26-192) U/L Total Protein 7.5 (6.0-8.3) gm/dl Albumin 4.1 (3.4-5.0) gm/dl Globulin 3.4 (2.5-4.0) gm/dl Albumin/Globulin Ratio 1.2 (0.9-2) Urine Color Urine Appearance (Clear) Urine pH (4.5-7.5) Ur Specific [place] (1.000-1.030) Urine Protein (Negative) Urine Glucose (UA) (Negative) Urine Ketones (Negative) Urine Blood (Negative) Urine Nitrite (Negative) Urine Bilirubin (Negative) Urine Urobilinogen (Negative) Ur Leukocyte Esterase (Negative) Urine WBC (Auto) (0-5) /hpf Urine RBC (Auto) (0-4) /hpf U Hyaline Cast (Auto) (0-5) /lpf U Epithel Cells (Auto) (0-5) /lpf Urine Bacteria (Auto) (Negative) SARS-CoV-2, RNA, NAAT (NEGATIVE) 08/17/22 08/17/22 Range/Units 10:45 10:45 WBC (4.8-10.8) K/ul RBC (4.20-5.40) M/uL Hgb (12.0-16.0) g/dl Hct (37.0-47.0) % MCV (80.0-100.0) fL MCH (25.0-34.0) pg MCHC (32.0-36.0) g/dL RDW Std Deviation (36.4-46.3) fL RDW Coeff of Rah (11.5-14.5) % Plt Count (130-400) K/uL MPV (9.4-12.4) fL Immature Gran % (Auto) % Neut % (Auto) % Lymph % (Auto) % [place] % (Auto) % Eos % (Auto) % Baso % (Auto) % Neut # (Auto) (1.40-6.50) K/uL Lymph # (Auto) (1.2-3.4) K/uL [place] # (Auto) (0.11-0.59) K/uL Eos # (Auto) (0-0.50) K/uL Baso # (Auto) (0-0.2) K/uL Immature Gran # (Auto) (0.01-0.20) K/uL PT (9.0-12.0) Seconds INR (0.9-1.1) Sodium (136-145) mmol/L Potassium (3.5-5.1) mmol/L Chloride (98-107) mmol/L Carbon Dioxide (21-32) mmol/L Anion Gap (3-11) BUN (6-23) mg/dl Creatinine (0.6-1.2) mg/dl Est Cr Clr Drug Dosing Est GFR ( Amer) ml/min Est GFR (Non-Af Amer) ml/min BUN/Creatinine Ratio (10-20) Glucose (70-99(Fasting)) mg/dl Calcium (8.5-10.1) mg/dl Total Bilirubin (0.2-1.0) mg/dl AST (13-39) U/L ALT (7-52) U/L Alkaline Phosphatase (34-104) U/L Total Creatine Kinase (26-192) U/L Total Protein (6.0-8.3) gm/dl Albumin (3.4-5.0) gm/dl Globulin (2.5-4.0) gm/dl Albumin/Globulin Ratio (0.9-2) Urine Color Yellow Urine Appearance Clear (Clear) Urine pH 8.0 H (4.5-7.5) Ur Specific [place] 1.012 (1.000-1.030) Urine Protein Negative (Negative) Urine Glucose (UA) Trace H (Negative) Urine Ketones Negative (Negative) Urine Blood 2+ H (Negative) Urine Nitrite Negative (Negative) Urine Bilirubin Negative (Negative) Urine Urobilinogen Negative (Negative) Ur Leukocyte Esterase Negative (Negative) Urine WBC (Auto) 0 (0-5) /hpf Urine RBC (Auto) 10-30 H (0-4) /hpf U Hyaline Cast (Auto) 0 (0-5) /lpf U Epithel Cells (Auto) 5-10 H (0-5) /lpf Urine Bacteria (Auto) Negative (Negative) SARS-CoV-2, RNA, NAAT NEGATIVE (NEGATIVE) Administered Medications Discontinued Medications Fentanyl Citrate (Fentanyl Citrate 100 Mcg/2 Ml Vial) 100 mcg IV NOW STA Stop: 08/17/22 10:29 Last Admin: 08/17/22 11:09 Dose: 100 mcg Documented By: INOCENCIA Acetaminophen (Ofirmev) 1,000 mg in 100 mls @ 400 mls/hr IV NOW STA Stop: 08/17/22 12:46 Last Infusion: 08/17/22 13:34 Dose: 0 mls/hr Documented By: Admin: 08/17/22 13:02 Dose: 400 mls/hr Documented By: INOCENCIA Imaging Data Radiologist's Impression: Cervical Spine CT 08/17/22 10:[address] DOSE: 1052.14 mGy.cm HISTORY: fall TECHNIQUE: Multiaxial CT images of the cervical spine were performed and reformatted in the sagittal and coronal plane without the use of contrast. A dose lowering technique was utilized adhering to the principles of ALARA. COMPARISON: None. FINDINGS: No fractures. Mild anterolisthesis of C7 on T1 is likely due to long- standing degenerative change. Mild to moderate degenerative changes within the cervical spine. There is straightening of the cervical spine. Prevertebral soft tissues and the C1-C2 interval are intact. No pneumothorax. IMPRESSION: No fractures within the cervical spine. ACT 112: Negative or not required by law. Electronically signed by: Trevor Motta M.D. 08/17/2022 11:16 AM Chest X-Ray 08/17/22 10:29 XR chest 1V portable HISTORY: Fall. Right femoral fracture. COMPARISON: None. FINDINGS: The lungs are clear. The heart is top normal in size. No pleural effusions. No pneumothorax. 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 IMPRESSION: No acute process. ACT 112: Negative or not required by law. Electronically signed by: Trevor Motta M.D. 08/17/2022 11:[address] 08/17/22 10:[address] DOSE: HISTORY: fall, hit head TECHNIQUE: Multiaxial CT images of the head were performed without the use of intravenous contrast. Automated exposure control was utilized for this study. A dose lowering technique was utilized adhering to the principles of ALARA. Comparison: None. Findings: The paranasal sinuses and mastoid air cells are clear. The calvarium and skull base are intact. There is no mass, hematoma, midline shift, acute infarct. White matter hypodensity is nonspecific but suggestive of microvascular ischemic change. The ventricles and sulci demonstrate mild age-related involutional changes. 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 Impression: No acute intracranial abnormality. Atrophy and microvascular ischemic changes. ACT 112: Negative or not required by law. Electronically signed by: Trevor Motta M.D. 08/17/2022 11:13 AM Hip/Pelvis X-Ray 08/17/22 10:29 XR hip RT 2V w pelvis CLINICAL HISTORY: fall. Right hip/femur pain. COMPARISON STUDY: None. FINDINGS: There is a mildly displaced intertrochanteric fracture of the proximal right femur which extends into the proximal shaft of the femur. This demonstrates up to 1 cm of medial displacement. No dislocation. The visualized pelvic bones and left hip are intact. There is moderate osteoarthritis within the bilateral hips. IMPRESSION: A mildly displaced intertrochanteric fracture of the proximal right femur which extends into the proximal shaft. ACT 112: Negative or not required by law. Electronically signed by: Trevor Motta M.D. 08/17/2022 11:50 AM Knee X-Ray 08/17/22 10:29 XR knee RT 3V CLINICAL HISTORY: Right knee pain. Fall. COMPARISON STUDY: None. FINDINGS: No fracture or dislocation within the right knee. No significant soft tissue swelling. No knee effusion. There is mild tricompartmental osteo arthritis. The bones are slightly osteopenic. IMPRESSION: No fracture or dislocation within the right knee. ACT 112: Negative or not required by law. Electronically signed by: Trevor Motta M.D. 08/17/2022 11:47 AM Femur X-Ray 08/17/22 12:23 XR femur RT 2V routine CLINICAL HISTORY: Right femur pain. COMPARISON STUDY: Right hip 08/17/2022. FINDINGS: Redemonstration of mildly displaced spiral fracture within the in tertrochanteric right femur which extends into the proximal shaft. The distal femur is intact. No dislocation. IMPRESSION: No change in the mildly displaced intertrochanteric fracture of the proximal right femur which extends into the proximal shaft. ACT 112: Negative or not required by law. Electronically signed by: Trevor Motta M.D. 08/17/2022 1:46 PM Discharge Plan Visit Data Chief Complaint: Fall Stated Complaint: FALL, LEG PAIN ED Provider: Norberto Sims Discharge Problem: Fall, Closed right femoral fracture Patient Disposition: Admitted As Inpatient Discharge Instructions Interventions: ED Discharge Assessment Last Done: 08/17/22 15:41 Fall Qualifiers: Encounter type: initial encounter Qualified Code(s): W19.XXXA - Unspecified fall, initial encounter Closed right femoral fracture Qualifiers: Encounter type: initial encounter Femur location: unspecified portion of femur Fracture morphology: unspecified fracture morphology Qualified Code(s): S72.91XA - Unspecified fracture of right femur, initial encounter for closed fracture
[2022-08-17 11:34] LABS: Prothrombin Time 10.7 Seconds (9.0-12.0)
--- NOTE | 2022-08-17 11:48 | XRay Report ---
XR knee RT 3V CLINICAL HISTORY: Right knee pain. Fall. COMPARISON STUDY: None. FINDINGS: No fracture or dislocation within the right knee. No significant soft tissue swelling. No k nee effusion. There is mild tricompartmental osteoarthritis. The bones are slightly osteopenic. IMPRESSION: No fracture or dislocation within the right knee. ACT 112: Negative or not required by law. Electronically signed by: Trevor Motta M.D. 08/17/2022 11:47 AM
--- NOTE | 2022-08-17 11:51 | XRay Report ---
XR hip RT 2V w pelvis CLINICAL HISTORY: fall. Right hip/femur pain. COMPARISON STUDY: None. FINDINGS: There is a mildly displaced intertrochanteric fracture of the proximal right femur which ex tends into the proximal shaft of the femur. This demonstrates up to 1 cm of medial displacement. No d islocation. The visualized pelvic bones and left hip are intact. There is moderate osteoarthritis wit hin the bilateral hips. IMPRESSION: A mildly displaced intertrochanteric fracture of the proximal right femur which extends into the proximal shaft. ACT 112: Negative or not required by law. Electronically signed by: Trevro Motta M.D. 08/17/2022 11:50 AM
--- NOTE | 2022-08-17 11:52 | XRay Report ---
XR chest 1V portable HISTORY: Fall. Right femoral fracture. COMPARISON: None. FINDINGS: The lungs are clear. The heart is top normal in size. No pleural effusions. No pneumothorax . 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 IMPRESSION: No acute process. ACT 112: Negative or not required by law. Electronically signed by: Trevor Motta M.D. 08/17/2022 11:51 AM
--- NOTE | 2022-08-17 12:29 | History & Physical Report ---
Date of Service August 17, 2022 Assessment & Plan (1) Fall: Plan: 77-year-old female who got up this morning to use the bathroom when she tripped over what she thinks was a blanket sustaining a fall and fracture to her right hip. She denies any chest pain or chest pressure either during episode or leading up to her admission. She had no syncopal, presyncopal, or dizziness symptoms and no shortness of breath/sweating that contributed to her fall. She has no history of heart disease, oxygen requirement, CKD, hypertension, bleeding, CVA/TIA, or tobacco/alcohol use. Fall with hip fracture No syncopal, presyncopal, or dizziness symptoms leading up to her fall. Does not report weakness that contributed to her fall. No cardiac history, EKG without arrhythmia or ischemia. Right knee x-ray: No fracture or dislocation Hip and pelvis x-ray: Mildly displaced intertrochanteric fracture of proximal right femur extending into the proximal shaft with 1 cm medial displacement CThead: No acute intracranial abnormality. Atrophy and microvascular ischemic changes are noted Chest x-ray: No acute findings CTC-spine: No fractures of the cervical spine are noted CK is normal Orthopedics consulted. Bedrest, Tabares placed Tylenol with breakthrough scaled morphine every 4 hours for pain control. Hold for respiratory suppression Clears until midnight, n.p.o. 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 Patient has not needed this regularly recently Diet: Clears, n.p.o. at midnight Disposition: Medical/surgical CODE STATUS: Full code DVT prophylaxis: SCDs (2) Closed right femoral fracture: (3) Hypothyroidism: (4) Hyperglycemia: History of Present Illness Primary Care Provider: Rosas Green MD Sri is a 77-year-old female with a past medical history of hypothyroidism, hyperglycemia, degenerative scoliosis, osteoporosis who BIBA after patient was found down by her after she tripped over a blanket causing her to fall to her right hip and sustaining a hip fracture. Thi smorning she had to use the bathroom when her foot got caught on the floor and she lost her balance. She fell down and immediately had pain and inability to bear weight on her R femur. Could not stand on several attempts, so she crawled to the bathroom/toilet but still could not raise herself up to the toilet. Could not get to bathroom so had a BM on the floor. Shuffled to the wall, felt very cold because the tile floors were cold and was laying on the bar floor but had trouble making it to the rug which was warming. Around 9am or when it became light out her found her and called the [facility]MS. She did not pass out at any point, she tripped which caused her fall. She does not think she hit her head, fell off to the right side and hig against something. Thinks she may have got caugh in her blankets. No chest pain or chest pressure. no shortness of breath. No lightheadedness or dizziness No history of DM or antiglycemic medication use No history of heart disease or [place]. No hsitory of strokes of ministrokes No history of high blood pressure, typically her BP is ~124/70s. No current or former history of tobacco use. No alcohol. No recreational or m edial marijuana use. Has been taking tylenol and advil x2 days for shoulder and back arthritis. Has some R wrist aching from arthritis. No numbness/tingling or strength loss. Medical History: Reviewed Medications: Reviewed. Did not ttake any medications 08/17. Uses lorazepam for sleep, hasnt needed since being on sertraline. Surgical History: Reviewed Family history: Reviewed Allergies: Reviewed. Allergic to sulfa and ibuprofen (throat involvement and swelling). Has been taking tylenol and advil for two days and has been tolerating OK with no reaction. Social History: No tobacco, etoh, rec drug, or marijuana use Code Status: Full Code Allergies Allergy/AdvReac Type Severity Reaction Status Date / Time shellfish derived Allergy Unknown RASH,HIVES, Verified 08/17/22 12:15 DIARRHEA ibuprofen AdvReac Unknown SORE THROAT Verified 08/17/22 12:15 Sulfa (Sulfonamide AdvReac Unknown THROAT Verified 08/17/22 12:15 Antibiotics) CLOSING sulindac AdvReac Unknown "SORE Verified 08/17/22 12:15 THROAT" Advil CAPS Allergy Mild Hives Uncoded 08/17/22 12:15 Clinoril TABS Allergy Mild Rash Uncoded 08/17/22 12:15 Dust Allergy Unknown COUGHING,CO Uncoded 08/17/22 12:15 NGESTION Home Medications Medication Instructions Recorded Confirmed Type calcium-vitamin D3-vitamin K 500 2 tab PO BID 05/11/19 08/17/22 History mg-500 unit-40 mcg chewable tablet cholecalciferol (vitamin D3) 50 50 mcg PO DAILY #30 tabs 10/21/19 08/17/22 Rx mcg (2,000 unit) tablet albuterol sulfate 90 mcg/actuation 2 puff inhalation Q4H PRN 07/25/20 08/17/22 Rx aerosol inhaler (ProAir HFA) shortness of breath or wheezing #18 grams sumatriptan succinate 100 mg tablet 100 mg PO Q2H PRN migraine 07/15/21 08/17/22 Rx headache #10 tabs lorazepam 0.5 mg tablet 0.25 - 0.5 mg PO HS PRN anxiety 06/24/22 08/17/22 Rx #30 tabs bupropion HCl 150 mg 24 hr tablet, 150 mg PO QAM #90 tabs 07/11/22 08/17/22 Rx extended release levothyroxine 88 mcg tablet 88 mcg PO DAILY #90 tabs 07/11/22 08/17/22 Rx sertraline 100 mg tablet 100 mg PO DAILY #90 tabs 07/11/22 08/17/22 Rx lactobacillus combo #5 150 mg (2 0 mg PO DAILY 08/17/22 08/17/22 History billion cell) tablet,delayed release Past Med/Surg History Medical History (Updated 08/17/22 @ 12:24 by Norberto Sims M.D.) Allergic rhinitis Encounter for hepatitis C screening test for low risk patient refused Hyperglycemia Hypothyroidism Insomnia Osteoporosis Panic attacks Surgical History History of colonoscopy (2004) Hx of colonoscopy (2017) Family History Aunt Breast cancer Mother Cancer Stomach Cancer Father Hypertension Prostate cancer Diabetes Grandmother (Paternal) Myocardial infarction Denies family history of Ovarian cancer Social History Smoking Status: Never smoker Hx Alcohol Use: No Hx Substance Use: No Preferred Language: Trinidadian Visual Impairment: No Limitations Hearing Ability: Use of Hearing Aid Beliefs That Will Affect Care: None marital status: Current Living Situation: Spouse current occupational status: retired Feels Safe at Home: Yes Childhood Exposure to Second-Hand Smoke: No Dental Care, Regularly: Yes Physical Activity Frequency: 3-4 Times per Week Seatbelt Use: always Sunscreen Use: No Review of Systems Review of Systems: All systems reviewed & are unremarkable except as noted in HPI & below Physical Exam Physical Exam: General: A&Ox3. NAD. Cooperative. Answers questions appropriately, thought process limited and patient is a good historian HEENT: Atraumatic, normocephalic. Vision/hearing grossly intact, although somewhat hard of hearing. Pupils equal and reactive to light. Pulm: CTAB A&P. -wheezes, -rales, -rhonchi. Symmetrical chest rise. No increased work of breathing. No respiratory distress. Cardiac: RRR, -mrg. Radial pulses intact and symmetrical. Abdominal: Nontender, nondistended, soft. BS present. Extremities: Right hip tender to palpation at anterior thigh. Patient with additional minimal mild tenderness at medial right knee joint line. Cap refill in right and left hallux brisk, PT pulse intact bilaterally. Sensation of soft touch intact in feet, lateral calf, and anterior thighs bilaterally without asymmetry. Ankle dorsiflexion/plantarflexion 5/5 bilaterally. Additional stren gth testing limited by pain and right hip fracture. Patient is laying with a hip flexed, knee flexed position. Results & Data Results & Data Vital Signs (Past 12 Hours) Vital Signs Temp Pulse Pulse Resp BP BP Pulse Ox 08/17/22 11:56 96 H 08/17/22 11:30 90 24 96 08/17/22 11:12 90 26 H 175/94 H 95 08/17/22 11:18 87 L 08/17/22 11:09 20 96 08/17/22 10:32 95 H 20 233/130 H 96 08/17/22 10:32 95 H 20 96 08/17/22 10:22 36.5 C 95 H 18 223/110 H 95 O2 Del Method 08/17/22 11:56 08/17/22 11:30 08/17/22 11:12 Room Air 08/17/22 11:18 Room Air 08/17/22 11:09 Room Air 08/17/22 10:32 Room Air 08/17/22 10:32 Room Air 08/17/22 10:22 Room Air PG Care Time/CCT Total # of Minutes Spent Total Time Spent with Patient: Total time spent is greater than 50% in coordination of care (as documented) at patient's floor/unit and/or counseling patient: Coding Level of Care Code 01950 INT INP/OBS CARE 2MIN Diagnoses Fall W19.XXXA Encounter type: initial encounter Closed right femoral fracture S72.91XA Encounter type: initial encounter Femur location: unspecified portion of femur Fracture morphology: unspecified fracture morphology Hypothyroidism E03.9 Hyperglycemia R73.9 (1) Fall Encounter type: initial encounter Qualified Code(s): W19.XXXA - Unspecified fall, initial encounter (2) Closed right femoral fracture Encounter type: initial encounter Femur location: unspecified portion of femur Fracture morphology: unspecified fracture morphology Qualified Code(s): S72.91XA - Unspecified fracture of right femur, initial encounter for closed fracture
[2022-08-17] MEDS ORDERED: ACETAMINOPHEN 1,000 MG/100 ML VIAL IV STA (12:32)
--- NOTE | 2022-08-17 13:48 | XRay Report ---
XR femur RT 2V routine CLINICAL HISTORY: Right femur pain. COMPARISON STUDY: Right hip 08/17/2022. FINDINGS: Redemonstration of mildly displaced spiral fracture within the intertrochanteric right femu r which extends into the proximal shaft. The distal femur is intact. No dislocation. IMPRESSION: No change in the mildly displaced intertrochanteric fracture of the proximal right femur which extends into the proximal shaft. ACT 112: Negative or not required by law. Electronically signed by: Trevor Motta M.D. 08/17/2022 1:46 PM
[2022-08-17] MEDS ORDERED: ACETAMINOPHEN 325 MG TAB PO PRN (15:42)
[2022-08-17] MEDS: MoRPHine SULFATE 2 MG/ML CARP IV PRN ×2 (16:45→21:28)
[2022-08-18] MEDS: MoRPHine SULFATE 2 MG/ML CARP IV PRN (02:10)
[2022-08-18] MEDS: LEVOTHYROXINE SODIUM 88 MCG TABLET PO SCH ×2 (02:12→09:08)
[2022-08-18] MEDS ORDERED: TRANEXAMIC ACID 1,000 MG in 0.9 % SODIUM CHLORIDE 100 ML IR SCH (06:00)
[2022-08-18 07:02] LABS: Basophils # (auto) 0.03 K/uL (0-0.2); Basophils % (auto) 0.3 %; Eosinophils # (auto) 0.05 K/uL (0-0.50); Eosinophils % (auto) 0.5 %; Hematocrit (blood only) 38.5 % (37.0-47.0); Hemoglobin 13.4 g/dl (12.0-16.0); Immature Granulocytes # (auto) 0.04 K/uL (0.01-0.20); Immature Granulocytes % (auto) 0.4 %; Lymphocytes # (auto) 1.42 K/uL (1.2-3.4); Lymphocytes % (auto) 15.3 %; Mean Corpuscular Hemoglobin 34.2 pg (25.0-34.0); Mean Corpuscular Hgb Conc 34.8 g/dL (32.0-36.0); Mean Corpuscular Volume 98.2 fL (80.0-100.0); Mean Platelet Volume 9.7 fL (9.4-12.4); Monocytes # (auto) 1.07 K/uL (0.11-0.59); Monocytes % (auto) 11.6 %; Neutrophils # (auto) 6.65 K/uL (1.40-6.50); Neutrophils % (auto) 71.9 %; Platelet Count 222 K/uL (130-400); RDW Coefficient of Variation 12.2 % (11.5-14.5); RDW Standard Deviation 43.9 fL (36.4-46.3); Red Blood Count 3.92 M/uL (4.20-5.40); White Blood Count 9.26 K/ul (4.8-10.8)
--- NOTE | 2022-08-18 07:09 | Orthopedic Consultation ---
Date of Service August 18, 2022 Assessment & Plan (1) Closed right femoral fracture: The patient's been admitted by the medicine service and appears medically optimized. We will keep her n.p.o. Begin DVT prophylaxis including thigh-high teds and SCDs. We will plan on fixing this today. Plan will be an IM nail. The risk meant this procedure explained the patient she understands and desires to proceed. Informed consent was obtained. History of Present Illness Reason for Consultation: . Right hip fracture Requesting Physician: . Attending Physician: Zbigniew Nair MD . 77-year-old quite healthy female who sustained an injury yesterday morning. She was apparently getting up to go the bathroom caught her foot on something and fell. She had cute onset of pain and could not walk afterwards. She was brought to emergency room where x-rays revealed a intertrochanteric hip fracture. She been admitted and were consulted for treatment. She is previously an independent ambulator. No pre-existing hip pain. Denies any other injuries. Allergies Allergy/AdvReac Type Severity Reaction Status Date / Time shellfish derived Allergy Unknown RASH,HIVES, Verified 08/17/22 12:15 DIARRHEA ibuprofen AdvReac Unknown SORE THROAT Verified 08/17/22 12:15 Sulfa (Sulfonamide AdvReac Unknown THROAT Verified 08/17/22 12:15 Antibiotics) CLOSING sulindac AdvReac Unknown "SORE Verified 08/17/22 12:15 THROAT" Advil CAPS Allergy Mild Hives Uncoded 08/17/22 12:15 Clinoril TABS Allergy Mild Rash Uncoded 08/17/22 12:15 Dust Allergy Unknown COUGHING,CO Uncoded 08/17/22 12:15 NGESTION Home Medications Medication Instructions Recorded Confirmed Type calcium-vitamin D3-vitamin K 500 2 tab PO BID 05/11/19 08/17/22 History mg-500 unit-40 mcg chewable tablet cholecalciferol (vitamin D3) 50 50 mcg PO DAILY #30 tabs 10/21/19 08/17/22 Rx mcg (2,000 unit) tablet albuterol sulfate 90 mcg/actuation 2 puff inhalation Q4H PRN 07/25/20 08/17/22 Rx aerosol inhaler (ProAir HFA) shortness of breath or wheezing #18 grams sumatriptan succinate 100 mg tablet 100 mg PO Q2H PRN migraine 07/15/21 08/17/22 Rx headache #10 tabs lorazepam 0.5 mg tablet 0.25 - 0.5 mg PO HS PRN anxiety 06/24/22 08/17/22 Rx #30 tabs bupropion HCl 150 mg 24 hr tablet, 150 mg PO QAM #90 tabs 07/11/22 08/17/22 Rx extended release levothyroxine 88 mcg tablet 88 mcg PO DAILY #90 tabs 07/11/22 08/17/22 Rx sertraline 100 mg tablet 100 mg PO DAILY #90 tabs 07/11/22 08/17/22 Rx lactobacillus combo #5 150 mg (2 0 mg PO DAILY 08/17/22 08/17/22 History billion cell) tablet,delayed release Past Med/Surg History Medical History Allergic rhinitis Encounter for hepatitis C screening test for low risk patient refused Hyperglycemia Hypothyroidism Insomnia Osteoporosis Panic attacks Surgical History History of colonoscopy (2004) Hx of colonoscopy (2017) Family History Aunt Breast cancer Mother Cancer Stomach Cancer Father Hypertension Prostate cancer Diabetes Grandmother (Paternal) Myocardial infarction Denies family history of Ovarian cancer Social History Smoking Status: Never smoker Hx Alcohol Use: No Hx Substance Use: No Preferred Language: Indonesian Communication Ability: Effective Visual Impairment: No Limitations Hearing Ability: Use of Hearing Aid Manager Pricing Required: No Beliefs That Will Affect Care: None marital status: Current Living Situation: Spouse current occupational status: retired Other Information That Helps Us Care for You: No Feels Safe at Home: Yes Childhood Exposure to Second-Hand Smoke: No Dental Care, Regularly: Yes Physical Activity Frequency: 3-4 Times per Week Seatbelt Use: always Sunscreen Use: No Assistive Devices: Glasses, Hearing Aid - Left, Hearing Aid - Right and Walker Review of Systems All systems reviewed & are unremarkable except as noted in HPI & below. Physical Exam . Physical examination is a pleasant elderly female. She is awake alert and oriented and appropriate. She is lying in bed pretty uncomfortable. Examination of the right hip and leg reveals her leg to be just slightly shortened and rotated. No segment bruising or swelling. She had marked pain with any type of hip motion. No knee effusion. She is neurologically intact. Results & Data Results & Data Laboratory Results . Diagnostic Findings . X-rays of the pelvis and right femur overall right intertrochanteric hip fracture with significant subtrochanteric extension. PG Care Time/CCT Total # of Minutes Spent Total Time Spent with Patient: Total time spent is greater than 50% in coordination of care (as documented) at patient's floor/unit and/or counseling patient: Coding Level of Care Code 66589 IN/OBS CONSULT LVL 5,80M Diagnoses Closed right femoral fracture S72.91XA Encounter type: initial encounter Femur location: unspecified portion of femur Fracture morphology: unspecified fracture morphology (1) Closed right femoral fracture Encounter type: initial encounter Femur location: unspecified portion of femur Fracture morphology: unspecified fracture morphology Qualified Code(s): S72.91XA - Unspecified fracture of right femur, initial encounter for closed fracture
[2022-08-18 07:14] LABS: Calcium 8.8 mg/dl (8.5-10.1); Creatinine Clr Calc Pharmacy 50.8 ml/min; Est GFR (African American) 101.2 ml/min; Est GFR (Non-African American) 87.3 ml/min; Potassium 3.8 mmol/L (3.5-5.1)
[2022-08-18] MEDS ORDERED: LACTATED RINGER'S 1,000 ML IV SCH (07:15)
[2022-08-18] MEDS ORDERED: SERTRALINE HCL 100 MG TABLET PO SCH ×2 (09:00→21:00)
[2022-08-18] MEDS: buPROPion XL 150 MG TABCR PO SCH (09:07)
[2022-08-18] MEDS ORDERED: Nursing to Pharmacy Communication SCH ×2 (09:15→20:15)
--- NOTE | 2022-08-18 11:08 | Electrocardiogram Report ---
Test Reason : Blood Pressure : / mmHG Vent. Rate : 095 BPM Atrial Rate : 095 BPM P-R Int : 158 ms QRS Dur : 080 ms QT Int : 354 ms P-R-T Axes : 062 067 054 degrees QTc Int : 444 ms Poor data quality, interpretation may be adversely affected Normal sinus rhythm Possible Left atrial enlargement Borderline ECG When compared with ECG of 20-JUN-2009 11:14, Vent. rate has increased BY 40 BPM QT has lengthened Confirmed by Tuan Lundy ([id number]) on 08/18/2022 11:07:41 AM Referred By: REFERRED SELF Confirmed By:Dwain Lundy
[2022-08-18] MEDS ORDERED: BUPIVACAINE/EPINEPHRINE 0.5% MPF 1:200,000 30 ML VIAL ONE (11:21)
[2022-08-18] MEDS ORDERED: fentaNYL citrate PF 100 MCG/2 ML VIAL ONE (12:11)
[2022-08-18] MEDS ORDERED: ATROPINE SULFATE 0.1 MG/ML 10ML SYR IV PRN (12:20)
[2022-08-18] MEDS ORDERED: ePHEDrine sulfate 50 MG/ML AMP IV PRN (12:20)
[2022-08-18] MEDS ORDERED: ONDANSETRON INJ 2 MG/ML 2 ML VIAL IV PRN (12:20)
[2022-08-18] MEDS ORDERED: fentaNYL citrate PF 100 MCG/2 ML VIAL IV PRN (12:20)
--- NOTE | 2022-08-18 12:20 | Anesthesiology Consultation ---
Date of Service August 18, 2022 Assessment & Plan (1) Encounter for pre-operative examination: Chart Review Chart Review: Acceptable Risk for Surgery and Patient NOT seen in Pre Admission Testing Consults Requested none ASA ASA2 Proposed Anesthesia Anesthesia Type: General Additional Notes discussed spinal vs. general, patient prefers GA History Surgery Operation Date: 08/18/22 08:20 Proposed Procedures p Right Long Troch Nail - Jaciel Banks MD Height/Weight Height: 4 ft 7 in Weight: 53.18 kg Allergies Allergy/AdvReac Type Severity Reaction Status Date / Time shellfish derived Allergy Unknown RASH,HIVES, Verified 08/17/22 12:15 DIARRHEA ibuprofen AdvReac Unknown SORE THROAT Verified 08/17/22 12:15 Sulfa (Sulfonamide AdvReac Unknown THROAT Verified 08/17/22 12:15 Antibiotics) CLOSING sulindac AdvReac Unknown "SORE Verified 08/17/22 12:15 THROAT" Advil CAPS Allergy Mild Hives Uncoded 08/17/22 12:15 Clinoril TABS Allergy Mild Rash Uncoded 08/17/22 12:15 Dust Allergy Unknown COUGHING,CO Uncoded 08/17/22 12:15 NGESTION Medications Home Medications Medication Instructions Recorded Confirmed Last Taken calcium-vitamin D3-vitamin K 500 2 tab PO BID 05/11/19 08/17/22 Unknown mg-500 unit-40 mcg chewable tablet cholecalciferol (vitamin D3) 50 50 mcg PO DAILY #30 tabs 10/21/19 08/17/22 Unknown mcg (2,000 unit) tablet albuterol sulfate 90 mcg/actuation 2 puff inhalation Q4H PRN 07/25/20 08/17/22 Unknown aerosol inhaler (ProAir HFA) shortness of breath or wheezing #18 grams sumatriptan succinate 100 mg tablet 100 mg PO Q2H PRN migraine 07/15/21 08/17/22 Unknown headache #10 tabs lorazepam 0.5 mg tablet 0.25 - 0.5 mg PO HS PRN anxiety 06/24/22 08/17/22 Unknown #30 tabs bupropion HCl 150 mg 24 hr tablet, 150 mg PO QAM #90 tabs 07/11/22 08/17/22 Unknown extended release levothyroxine 88 mcg tablet 88 mcg PO DAILY #90 tabs 07/11/22 08/17/22 Unknown lactobacillus combo #5 150 mg (2 0 mg PO DAILY 08/17/22 08/17/22 Unknown billion cell) tablet,delayed release sertraline 100 mg tablet 100 mg PO HS 08/18/22 08/18/22 Unknown Active Medications Generic Name Dose Route Start Last Admin Trade Name Freq PRN Reason Stop Dose Admin Bupropion HCl 150 mg 08/18/22 09:00 08/18/22 09:07 Bupropion Xl 150 Mg Tabcr PO 09/17/22 08:59 Not Given QAM CODY Lactated Ringer's 1,000 mls @ 80 mls/hr 08/18/22 07:15 08/18/22 08:03 Lr IV 09/17/22 07:14 80 mls/hr .[id number] CODY Administration Levothyroxine Sodium 88 mcg 08/18/22 06:30 08/18/22 09:08 Levothyroxine Sodium 88 Mcg Tablet PO 09/17/22 06:29 88 mcg DAILYBB CODY Administration Morphine Sulfate 2 mg 08/17/22 15:42 08/18/22 02:10 Morphine Sulfate 2 Mg/Ml Carp IV 08/31/22 15:41 2 mg Q4H PRN Administration Severe Pain (7,8,9,10) on NRS Morphine Sulfate 1 mg 08/17/22 15:42 08/17/22 16:45 Morphine Sulfate 2 Mg/Ml Carp IV 08/31/22 15:41 1 mg Q4H PRN Administration Moderate Pain (4,5,6) on NRS NPO Date Last Intake of Fluids: 08/17/22 Time Last Intake of Fluids: 21:00 Last Intake of Fluids Comment: am sip approximately 0800 for med Date Last Intake of Solids: 08/17/22 Time Last Intake of Solids: 18:00 Past Medical History Medical History (Updated 08/18/22 @ 12:19 by Branden Mcgovern DO) Allergic rhinitis Encounter for hepatitis C screening test for low risk patient refused Hyperglycemia Hypothyroidism Insomnia Osteoporosis Panic attacks Past Family History Family History Aunt Breast cancer Mother Cancer Stomach Cancer Father Hypertension Prostate cancer Diabetes Grandmother (Paternal) Myocardial infarction Denies family history of Ovarian cancer Past Surgical History Surgical History History of colonoscopy (2005) Hx of colonoscopy (2018) Social History Smoking Status: Never smoker Hx Alcohol Use: No Hx Substance Use: No Physical Exam Vital Signs Last Vital Signs Temp 98.4 F 08/18/22 11:30 Pulse 81 08/18/22 11:30 Resp 20 08/18/22 11:30 BP 167/78 H 08/18/22 11:30 Pulse Ox 93 08/18/22 11:30 O2 Del Method Room Air 08/18/22 11:30 Testing Laboratory Results 08/18/22 06:22 08/18/22 06:22 PT 10.7 Seconds (9.0-12.0) 08/17/22 10:43 INR 1.0 (0.9-1.1) 08/17/22 10:43 Urine Color Yellow 08/17/22 10:45 Urine Appearance Clear (Clear) 08/17/22 10:45 Urine pH 8.0 (4.5-7.5) H 08/17/22 10:45 Ur Specific [place] 1.012 (1.000-1.030) 08/17/22 10:45 Urine Protein Negative (Negative) 08/17/22 10:45 Urine Glucose (UA) Trace (Negative) H 08/17/22 10:45 Urine Ketones Negative (Negative) 08/17/22 10:45 Urine Nitrite Negative (Negative) 08/17/22 10:45 Ur Leukocyte Esterase Negative (Negative) 08/17/22 10:45 Urine WBC (Auto) 0 /hpf (0-5) 08/17/22 10:45 Urine RBC (Auto) 10-30 /hpf (0-4) H 08/17/22 10:45 U Hyaline Cast (Auto) 0 /lpf (0-5) 08/17/22 10:45 U Epithel Cells (Auto) 5-10 /lpf (0-5) H 08/17/22 10:45 Urine Bacteria (Auto) Negative (Negative) 08/17/22 10:45 Blood Type B Positive 08/17/22 18:13 Antibody Screen NEGATIVE 08/17/22 18:13 Electrocardiogram Date: 08/17/22 Findings: + NSR @
[2022-08-18] MEDS ORDERED: TRANEXAMIC ACID / 0.7% NACL 1000MG/100ML BAG IV ONE (12:40)
[2022-08-18] MEDS ORDERED: ceFAZolin 2,000 MG/15 ML IV PUSH IV ONE (12:41)
[2022-08-18] MEDS ORDERED: ceFAZolin 2000MG 2,000 MG/15 ML SYR IV ONE (12:46)
[2022-08-18] MEDS ORDERED: TRANEXAMIC ACID / 0.7% NACL 1,000 MG/100 ML BAG IV ONE (12:58)
[2022-08-18] MEDS ORDERED: PROPOFOL IV EMULSION 10 MG/ML 20 ML VIAL IV ONE (12:59)
[2022-08-18] MEDS ORDERED: LIDOCAINE 2% MPF LOCAL 5 ML VIAL INFIL ONE (12:59)
[2022-08-18] MEDS ORDERED: DEXAMETHASONE SOD INJ 4 MG/ML VIAL ONE (12:59)
[2022-08-18] MEDS ORDERED: ONDANSETRON INJ 2 MG/ML 2 ML VIAL ONE (12:59)
--- NOTE | 2022-08-18 13:29 | Hospitalist Progress Note ---
Date of Service August 18, 2022 Assessment & Plan (1) Fall: Plan: This was a mechanical fall Led to a right femoral fracture (2) Closed right femoral fracture: Plan: Hip and pelvis x-ray: Mildly displaced intertrochanteric fracture of proximal right femur extending into the proximal shaft with 1 cm medial displacement CThead: No acute intracranial abnormality. Atrophy and microvascular is chemic changes are noted Chest x-ray: No acute findings CTC-spine: No fractures of the cervical spine are noted She is going to the OR today per orthopedics Pain control with morphine and Tylenol SCDs for DVT prophylaxis. 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 Patient has not needed this regularly recently Admission and Anticipated Discharge Date Admission Date: August 17, 2022 Subjective Patient feels well today. Denies chest pain or shortness of breath. She has a lot of questions about her hip. She understands that she will go to the OR today Review of Systems Review of Systems: All systems reviewed & are unremarkable except as noted in Subjective Physical Exam Physical Exam: General: Awake, conversant Heart: S1, S2/regular rate and rhythm, no murmur rubs or gallops Lungs: Clear to auscultation bilaterally. Normal effort Abdomen: Soft/nontender/nondistended. No hepatosplenomegaly Extremities: No clubbing/cyanosis. No edema Behavior: Appropriate, cooperative Results & Data Results & Data Vital Signs (Past 12 Hours) Vital Signs Temp Pulse Resp BP Pulse Ox O2 Del Method 08/18/22 11:30 36.9 C 81 20 167/78 H 93 Room Air 08/18/22 08:00 Room Air 08/18/22 09:06 93 Room Air 08/18/22 07:43 37.0 C 80 16 157/78 H 91 Room Air Laboratory Results Abnormal lab results 08/18/22 08/18/22 Range/Units 06:22 06:22 RBC 3.92 L (4.20-5.40) M/uL MCH 34.2 H (25.0-34.0) pg Neut # (Auto) 6.65 H (1.40-6.50) K/uL [place] # (Auto) 1.07 H (0.11-0.59) K/uL BUN/Creatinine Ratio 30.0 H (10-20) Glucose 123 H (70-99(Fasting)) mg/dl Diagnostic Findings Femur X-Ray 08/17/22 12:23 XR femur RT 2V routine CLINICAL HISTORY: Right femur pain. COMPARISON STUDY: Right hip 08/17/2022. FINDINGS: Redemonstration of mildly displaced spiral fracture within the intertrochanteric right femur which extends into the proximal shaft. The distal femur is intact. No dislocation. IMPRESSION: No change in the mildly displaced intertrochanteric fracture of the proximal right femur which extends into the proximal shaft. ACT 112: Negative or not required by law. Electronically signed by: Trevor Motta M.D. 08/17/2022 1:46 PM PG Care Time/CCT Total # of Minutes Spent Total Time Spent with Patient: Total time spent is greater than 50% in coordination of care (as documented) at patient's floor/unit and/or counseling patient: Coding Level of Care Code 42348 SUB INP/OBS CARE 2/35MIN Diagnoses Fall W19.XXXA Encounter type: initial encounter Closed right femoral fracture S72.91XA Encounter type: initial encounter Femur location: unspecified portion of femur Fracture morphology: unspecified fracture morphology Hypothyroidism E03.9 Hyperglycemia R73.9 Depression with anxiety F41.8 (1) Fall Encounter type: initial encounter Qualified Code(s): W19.XXXA - Unspecified fall, initial encounter (2) Closed right femoral fracture Encounter type: initial encounter Femur location: unspecified portion of femur Fracture morphology: unspecified fracture morphology Qualified Code(s): S72.91XA - Unspecified fracture of right femur, initial encounter for closed fracture
--- NOTE | 2022-08-18 14:18 | Operative Report ---
PG Post Operative Report Pre & Post Diagnosis Operation Date: 08/18/22 08:20 Preoperative diagnosis: Right intertrochanteric hip fracture with subtrochanteric extension Postoperative diagnosis: Right intertrochanteric hip fracture with subtrochanteric extension I identified the patient and participated in the time-out.: Yes Procedure Operation Date: 08/18/22 08:20 Intramedullary nailing of right intertrochanteric/subtrochanteric femur fracture. Surgeon Jaciel Banks MD Senior Db2 Systems Programmer Ko Steve PA-C Estimated Blood Loss 100 Findings Consistent with Post-Op Diagnosis Specimens None Anesthesia Type General Disposition Accompanied Patient To Recovery: No Indications Patient is a 77-year-old female who sustained a fall yesterday morning. She was getting up to go the bathroom and got her foot caught in a rug and fell. She cute onset of pain was unable to ambulate. She was brought to emergency room where x-rays revealed a right intertrochanteric/subtrochanteric femur fracture. Patient was admitted by the hospitalist service, medically optimized, indicated for surgical treatment. Description of Procedure Operative implants consist of: 1. Synthes right 320 mm x 10 mm long trochanteric nail. 2. 85 mm helical blade. 3. 38 mm x 5.0 mm distal interlocking screw. The patient was taken to the operating, identified, placed on the operating table supine position protectors were properly padded. IV antibiotics arrived by anesthesia team. Patient also got 1 g tranexamic acid. A general anesthetic was implemented. The patient was then placed on the fracture table. The right leg was placed in boot traction and the left leg was placed in a well leg webster. Great care was taken to protect all bony prominences. X-ray was then brought in. I applied some longitudinal traction to the femur and internally rotated the foot so the kneecap pointed to the ceiling. We got some appropriate x-rays make sure we could see the fracture and it was adequately reduced. The right hip and leg were then scrubbed with Hibiclens, prepped with ChloraPrep and draped in usual sterile fashion. A curvilinear incision was made over the proximal femur just proximal to the tip of the trochanter. Sharp dissection carried through subcutaneous tissue down the IT band gluteal fascia the IT band gluteal fascia incised longitudinally in line with skin incision. A guidewire was placed on the lateral tip of the trochanter and in line with the IM canal both the AP and lateral planes. This was advanced down the canal under fluoroscopic guidance. Position was verified. I overreamed this with a large reamer. The the guidewire was removed and a b all-tipped guidewire was placed down the IM canal. We measured for nail length and a 320 mm nail was selected. I then reamed over the guidewire with 10 mm reamer followed by and . We did get chatter at the 11 so we elect to place a 10 mm nail. A 320 mm x 10 mm right long trochanteric nail was placed over the guidewire. Was tapped in position. The lateral aiming arm was placed. Stab incision was made in the lateral aiming arm was advanced to the lateral aspect of the femur. A guidewire was placed in the central aspect of the femoral neck and head in both the AP and lateral planes. This was measured and then 85 mm helical blade was selected. The cortical step drill was used to breach the cortex and a triple reamer set at 85 and reamed over the guidewire. An 85 mm helical blade was placed. Was tapped into position. The proximal setscrew was tightened and the aiming arm was then removed. Some final x-rays were obtained. The fracture was nicely reduced and hardware was in appropriate position. Attention drawn to the distal interlocking. Using the perfect [place] technique a distal interlocking screw was placed through the dynamic hole to allow some compression and dynamization. A stab incision was made. The drill bit was used and a 38 mm screw was placed. Some final x-rays were obtained. Attention drawn toward closing. The wound was irrigated cosigns of normal saline. I did inject locally with 30 cc of half percent Marcaine with epinephrine. The gluteal fascia was then closed with #1 Vicryl suture in a running fashion for subcutaneous tissues then closed with #1 Vicryl suture in buried interrupted fashion the skin incisions were then closed with a subcuticular stitch of 2-0 Dexon suture and the skin with christi. Sterile dressing was Xeroform, 4 x 4's, ABD pad, foam tape was applied. The patient was then taken off the fracture table and placed on the transport bed. She was brought out of general anesthesia and transferred to the recovery room in stable condition. Patient tolerated procedure well and there were no complications. Ko Steve, my physician assistant manager bilingual, was present for the entire procedure. His assistance was required for proper patient positioning, prepping and draping, surgical exposure, retraction, perform the technical details of the operation, placement of the hardware, closure of the incision site and placement of sterile bandage. I attest to the content of the Intraoperative Record and any orders documented therein. Any exceptions are noted below.
[2022-08-18] MEDS ORDERED: LABETALOL HCL IV 5 MG/ML 20ML IV ONE (14:34)
[2022-08-18] MEDS: LABETALOL HCL IV 5 MG/ML 20ML IV STA ×2 (14:39→14:53)
[2022-08-18] MEDS ORDERED: LABETALOL HCL IV 5 MG/ML 20ML IV STA (14:59)
--- NOTE | 2022-08-18 15:04 | Anesthesiology Progress Note ---
Date of Service August 18, 2022 Anesthesia Post Procedure Vital Signs Vital Signs: Temp Pulse Pulse Resp BP BP Pulse Ox 08/18/22 15:00 98.6 F 76 19 154/76 H 95 08/18/22 14:50 77 17 174/80 H 96 08/18/22 14:40 91 H 18 189/79 H 95 08/18/22 14:30 89 19 192/94 H 97 08/18/22 14:20 86 16 199/92 H 97 08/18/22 14:13 98.1 F 84 14 210/91 H 95 08/18/22 11:30 98.4 F 81 20 167/78 H 93 08/18/22 08:00 08/18/22 09:06 93 08/18/22 07:43 98.6 F 80 16 157/78 H 91 08/17/22 21:36 99.1 F 84 16 136/74 92 08/17/22 15:54 08/17/22 15:54 98.1 F 84 18 123/70 94 O2 Del Method O2 Flow Rate 08/18/22 15:00 Nasal Cannula 2 08/18/22 14:50 Nasal Cannula 2 08/18/22 14:40 Oxymask 4 08/18/22 14:30 Oxymask 4 08/18/22 14:20 Oxymask 7 08/18/22 14:13 Oxymask 7 08/18/22 11:30 Room Air 08/18/22 08:00 Room Air 08/18/22 09:06 Room Air 08/18/22 07:43 Room Air 08/17/22 21:36 Room Air 08/17/22 15:54 Room Air 08/17/22 15:54 Room Air Pain Intensity Right Hip: Pain Intensity: 10 Right Leg: Pain Intensity: 10 Transfer of Care Handoff Completed per policy Notes Mental Status: alert / awake / arousable and participated in evaluation Patient Amnestic to Procedure: Yes Nausea / Vomiting: adequately controlled Pain: adequately controlled Airway Patency, RR, SpO2: stable & adequate BP & HR: stable & adequate Hydration State: stable & adequate Anesthetic Complications: no major complications apparent and Pt Satisfied with anesthetic care
--- NOTE | 2022-08-18 15:08 | Fluoroscopy Report ---
INTRAOPERATIVE RADIOGRAPHS CLINICAL HISTORY: Open reduction and internal fixation of the right proximal femur. Fluoro time: 79 seconds Exposure: 14.68 mGy FINDINGS: 6 spot fluoroscopic views of the right femur are correlated with radiograph dated 08/17/2022 . There has been intertrochanteric and intramedullary nail fixation of an intertrochanteric/subtrocha nteric fracture of the right proximal femur. Near anatomic alignment is restored noting mild offset o f the fragments. A single cortical lag screw transfixes the distal end of the intramedullary nail. Ov erlying soft tissue edema is noted. IMPRESSION: Intraoperative images from open reduction and internal fixation of a right proximal femor al fracture as above. Electronically signed by: Samuel Herrera M.D. 08/18/2022 3:06 PM
[2022-08-18] MEDS ORDERED: COUGH DROP (SUGAR FREE) LOZ 24 LOZ/1 BOX BUCCAL PRN (15:32)
[2022-08-18] MEDS: SODIUM CHLORIDE 0.9% 1000ML 1,000 ML IV SCH (16:03)
[2022-08-18] MEDS: ACETAMINOPHEN 325 MG TAB PO PRN (20:21)
[2022-08-18] MEDS: MELATONIN 3 MG TAB PO PRN (20:21)
[2022-08-18] MEDS: ceFAZolin 1000MG 1,000 MG/7.5 ML SYR IV SCH (20:21)
[2022-08-18] MEDS: ASPIRIN 81 MG ECTAB PO SCH (20:22)
[2022-08-18] MEDS: SERTRALINE HCL 100 MG TABLET PO SCH (20:22)
[2022-08-19] MEDS: ceFAZolin 1000MG 1,000 MG/7.5 ML SYR IV SCH (03:55)
[2022-08-19] MEDS: SODIUM CHLORIDE 0.9% 1000ML 1,000 ML IV SCH (03:59)
[2022-08-19] MEDS: LEVOTHYROXINE SODIUM 88 MCG TABLET PO SCH (04:04)
[2022-08-19 07:21] LABS: Basophils # (auto) 0.01 K/uL (0-0.2); Basophils % (auto) 0.1 %; Hematocrit (blood only) 33.4 % (37.0-47.0); Hemoglobin 11.6 g/dl (12.0-16.0); Immature Granulocytes # (auto) 0.06 K/uL (0.01-0.20); Immature Granulocytes % (auto) 0.5 %; Lymphocytes # (auto) 0.95 K/uL (1.2-3.4); Lymphocytes % (auto) 7.9 %; Mean Corpuscular Hemoglobin 34.1 pg (25.0-34.0); Mean Corpuscular Hgb Conc 34.7 g/dL (32.0-36.0); Mean Corpuscular Volume 98.2 fL (80.0-100.0); Mean Platelet Volume 9.9 fL (9.4-12.4); Monocytes # (auto) 1.29 K/uL (0.11-0.59); Monocytes % (auto) 10.7 %; Neutrophils # (auto) 9.75 K/uL (1.40-6.50); Neutrophils % (auto) 80.8 %; Platelet Count 219 K/uL (130-400); RDW Coefficient of Variation 11.9 % (11.5-14.5); RDW Standard Deviation 43.4 fL (36.4-46.3); White Blood Count 12.06 K/ul (4.8-10.8)
[2022-08-19 07:39] LABS: BUN Creatinine Ratio 28.3 (10-20); Calcium 8.3 mg/dl (8.5-10.1); Creatinine Clr Calc Pharmacy 57.6 ml/min; Est GFR (African American) 105.4 ml/min; Est GFR (Non-African American) 90.9 ml/min; Potassium 3.6 mmol/L (3.5-5.1)
[2022-08-19] MEDS: ASPIRIN 81 MG ECTAB PO SCH ×2 (08:01→20:55)
[2022-08-19] MEDS: buPROPion XL 150 MG TABCR PO SCH (08:01)
[2022-08-19] MEDS: ACETAMINOPHEN 325 MG TAB PO PRN (10:30)
--- NOTE | 2022-08-19 13:36 | Progress Notes ---
DATE OF SERVICE: 08/19/2022 SUBJECTIVE: A 77-year-old white female postoperative day 1 from IM nailing of her right intertrochan teric/subtrochanteric fracture. She is doing pretty well. Pain is much improved. Says she still ca nnot use her hip yet. Denies any new complaints. No chest pain or shortness of breath. OBJECTIVE: VITAL SIGNS: Temperature 36.5. Vital signs are stable. GENERAL: Shows a pleasant, elderly female. She is sitting up in her bedside chair and eating lunch and looks pretty comfortable. EXTREMITIES: Examination of the right leg reveals the leg to be well aligned. Dressing is clean, dr y, and intact. Thigh is soft and supple. She can dorsiflex and plantarflex her foot appropriately. LABORATORY DATA: Hemoglobin 11.6. Hematocrit is 33.4. Electrolytes are stable. ASSESSMENT: A 77-year-old white female postoperative day 1 from intramedullary nailing of right inte rtrochanteric/subtrochanteric fracture, doing pretty well. Pain seems to be much better controlled. She is neurologically intact. PLAN: 1. DVT prophylaxis includes thigh-high TEDs, SCDs and we would recommend a baby aspirin twice a day for 6 weeks. 2. PT/OT. She can fully weightbear as tolerated on the right leg. 3. Pain control, doing okay with current pain regimen. Need to limit narcotics to avoid confusion. 4. Medical management as per the Medicine Service. 5. Disposition: She is orthopedically okay for discharge any time medically stable. I need to see her back two to three weeks out from surgery date. Any orthopedic questions can be directed to me at [phone]. Job ID: [id number]
--- NOTE | 2022-08-19 16:00 | Hospitalist Progress Note ---
Date of Service August 19, 2022 Assessment & Plan (1) Fall: Plan: This was a mechanical fall Led to a right femoral fracture (2) Closed right femoral fracture: Plan: Hip and pelvis x-ray: Mildly displaced intertrochanteric fracture of proximal right femur extending into the proximal shaft with 1 cm medial displacement CThead: No acute intracranial abnormality. Atrophy and microvascular is chemic changes are noted Chest x-ray: No acute findings CTC-spine: No fractures of the cervical spine are noted status post status post intramedullary nailing of right intertrochanteric/subtrochanteric fracture on 08/18 Pain control with morphine and Tylenol SCDs for DVT prophylaxis. 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 Patient has not needed this regularly recently Admission and Anticipated Discharge Date Admission Date: August 17, 2022 Subjective Patient feels well. Denies chest pain or shortness of breath. However she appears confused. Physical Exam Physical Exam: General: Awake, conversant, pleasantly confused Heart: S1, S2/regular rate and rhythm, no murmur rubs or gallops Lungs: Clear to auscultation bilaterally. Normal effort Abdomen: Soft/nontender/nondistended. No hepatosplenomegaly Extremities: No clubbing/cyanosis. No edema Behavior: Appropriate, cooperative Results & Data Results & Data Vital Signs (Past 12 Hours) Vital Signs Temp Pulse Resp BP Pulse Ox O2 Del Method 08/19/22 11:36 36.5 C 93 H 18 116/62 94 Room Air 08/19/22 07:42 36.8 C 76 18 178/77 H 95 Room Air Laboratory Results Abnormal lab results 08/19/22 08/19/22 Range/Units 06:39 06:39 WBC 12.06 H (4.8-10.8) K/ul RBC 3.40 L (4.20-5.40) M/uL Hgb 11.6 L (12.0-16.0) g/dl Hct 33.4 L (37.0-47.0) % MCH 34.1 H (25.0-34.0) pg Neut # (Auto) 9.75 H (1.40-6.50) K/uL Lymph # (Auto) 0.95 L (1.2-3.4) K/uL [place] # (Auto) 1.29 H (0.11-0.59) K/uL Creatinine 0.53 L (0.6-1.2) mg/dl BUN/Creatinine Ratio 28.3 H (10-20) Glucose 171 H (70-99(Fasting)) mg/dl Calcium 8.3 L (8.5-10.1) mg/dl PG Care Time/CCT Total # of Minutes Spent Total Time Spent with Patient: Total time spent is greater than 50% in coordination of care (as documented) at patient's floor/unit and/or counseling patient: Coding Level of Care Code 19077 SUB INP/OBS CARE 2/35MIN Diagnoses Fall W19.XXXA Encounter type: initial encounter Closed right femoral fracture S72.91XA Encounter type: initial encounter Femur location: unspecified portion of femur Fracture morphology: unspecified fracture morphology Hypothyroidism E03.9 Hyperglycemia R73.9 Depression with anxiety F41.8 (1) Fall Encounter type: initial encounter Qualified Code(s): W19.XXXA - Unspecified fall, initial encounter (2) Closed right femoral fracture Encounter type: initial encounter Femur location: unspecified portion of femur Fracture morphology: unspecified fracture morphology Qualified Code(s): S72.91XA - Unspecified fracture of right femur, initial encounter for closed fracture
[2022-08-19] MEDS: SERTRALINE HCL 100 MG TABLET PO SCH (20:55)
[2022-08-19] MEDS: MELATONIN 3 MG TAB PO PRN (20:57)
[2022-08-20] MEDS: LEVOTHYROXINE SODIUM 88 MCG TABLET PO SCH (06:32)
[2022-08-20] MEDS: MoRPHine SULFATE 2 MG/ML CARP IV PRN (08:20)
[2022-08-20] MEDS: ASPIRIN 81 MG ECTAB PO SCH ×2 (08:27→19:54)
[2022-08-20] MEDS: buPROPion XL 150 MG TABCR PO SCH (08:27)
--- NOTE | 2022-08-20 13:11 | Hospitalist Progress Note ---
Date of Service August 20, 2022 Assessment & Plan (1) Fall: Plan: This was a mechanical fall Led to a right femoral fracture (2) Closed right femoral fracture: Plan: Hip and pelvis x-ray: Mildly displaced intertrochanteric fracture of proximal right femur extending into the proximal shaft with 1 cm medial displacement CThead: No acute intracranial abnormality. Atrophy and microvascular is chemic changes are noted Chest x-ray: No acute findings CTC-spine: No fractures of the cervical spine are noted status post status post intramedullary nailing of right intertrochanteric/subtrochanteric fracture on 08/18 Pain control with morphine and Tylenol SCDs for DVT prophylaxis. 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 Patient has not needed this regularly recently Admission and Anticipated Discharge Date Admission Date: August 17, 2022 Subjective Patient feels well. Denies chest pain or shortness of breath. She says that she slept well overnight. Review of Systems Review of Systems: All systems reviewed & are unremarkable except as noted in Subjective Physical Exam Physical Exam: General: Awake, conversant, pleasantly confused Heart: S1, S2/regular rate and rhythm, no murmur rubs or gallops Lungs: Clear to auscultation bilaterally. Normal effort Abdomen: Soft/nontender/nondistended. No hepatosplenomegaly Extremities: No clubbing/cyanosis. No edema Behavior: Appropriate, cooperative Results & Data Results & Data Vital Signs (Past 12 Hours) Vital Signs Temp Pulse Resp BP Pulse Ox O2 Del Method 08/20/22 07:54 36.8 C 83 16 187/78 H 95 Room Air PG Care Time/CCT Total # of Minutes Spent Total Time Spent with Patient: Total time spent is greater than 50% in coordination of care (as documented) at patient's floor/unit and/or counseling patient: Coding Level of Care Code 78020 SUB INP/OBS CARE 2/35MIN Diagnoses Fall W19.XXXA Encounter type: initial encounter Closed right femoral fracture S72.91XA Encounter type: initial encounter Femur location: unspecified portion of femur Fracture morphology: unspecified fracture morphology Hypothyroidism E03.9 Hyperglycemia R73.9 Depression with anxiety F41.8 (1) Fall Encounter type: initial encounter Qualified Code(s): W19.XXXA - Unspecified fall, initial encounter (2) Closed right femoral fracture Encounter type: initial encounter Femur location: unspecified portion of femur Fracture morphology: unspecified fracture morphology Qualified Code(s): S72.91XA - Unspecified fracture of right femur, initial encounter for closed fracture
[2022-08-20] MEDS: SERTRALINE HCL 100 MG TABLET PO SCH (19:53)
[2022-08-20] MEDS: MELATONIN 3 MG TAB PO PRN (19:53)
--- NOTE | 2022-08-20 22:27 | Progress Notes ---
DATE OF SERVICE: 08/20/2022. SUBJECTIVE: A 77-year-old female postoperative day 2 from IM nailing of right intertrochanteric/subt rochanteric fracture. She is doing pretty well. She is pretty comfortable pain elaine. As long as sh e does not move, really does not have any pain. She is mobilizing. No new complaints. No chest emanuel n or shortness of breath. OBJECTIVE: VITAL SIGNS: Temperature 36.7. Vital signs are stable. GENERAL: Shows a pleasant, frail, elderly female. She is sitting up in bed and looks comfortable. EXTREMITIES: Examination of right hip and leg reveals the dressing is intact. The thigh is soft and supple. There is no drainage. Leg lengths are equal. She is neurologically intact. ASSESSMENT: A 77-year-old female postoperative day 2 from IM nailing of right intertrochanteric/subt rochanteric fracture. She is doing pretty well. She is mobilizing reasonably well, but will likely need a rehab stay. PLAN: 1. DVT prophylaxis including thigh-high TEDs, SCDs, and aspirin twice a day for 6 weeks. 2. PT/OT. She can fully weightbear as tolerated on the right leg. 3. Pain control, doing okay with current pain regimen. 4. Disposition: She is orthopedically okay for discharge any time medically stable. I need to see her back in 2-3 weeks out from surgery date. Any orthopedic questions can be directed to me at . Job ID: [id number]
[2022-08-21] MEDS: LEVOTHYROXINE SODIUM 88 MCG TABLET PO SCH (06:22)
[2022-08-21] MEDS: MoRPHine SULFATE 2 MG/ML CARP IV PRN (07:54)
[2022-08-21] MEDS: ASPIRIN 81 MG ECTAB PO SCH ×2 (11:37→23:14)
[2022-08-21] MEDS: buPROPion XL 150 MG TABCR PO SCH (11:38)
--- NOTE | 2022-08-21 17:43 | Hospitalist Progress Note ---
Date of Service August 21, 2022 Assessment & Plan (1) Fall: Plan: This was a mechanical fall Led to a right femoral fracture (2) Closed right femoral fracture: Plan: Hip and pelvis x-ray: Mildly displaced intertrochanteric fracture of proximal right femur extending into the proximal shaft with 1 cm medial displacement CThead: No acute intracranial abnormality. Atrophy and microvascular is chemic changes are noted Chest x-ray: No acute findings CTC-spine: No fractures of the cervical spine are noted status post status post intramedullary nailing of right intertrochanteric/subtrochanteric fracture on 08/18 Pain control with morphine and Tylenol SCDs for DVT prophylaxis. baby aspirin twice daily for 6 weeks as DVT prophylaxis per surgical team PT/OT on board Awaiting placement -ordered laxative as patient has not had a BM. 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 Patient has not needed this regularly recently Admission and Anticipated Discharge Date Admission Date: August 17, 2022 Subjective Patient reports no new symptoms. Review of Systems Review of Systems: All systems reviewed & are unremarkable except as noted in HPI & below Physical Exam Physical Exam: General: Awake, conversant, pleasantly confused Heart: S1, S2/regular rate and rhythm, no murmur rubs or gallops Lungs: Clear to auscultation bilaterally. Normal effort Abdomen: Soft/nontender/nondistended. No hepatosplenomegaly Extremities: No clubbing/cyanosis. No edema Behavior: Appropriate, cooperative Results & Data Results & Data Vital Signs (Past 12 Hours) Vital Signs Temp Pulse Resp BP Pulse Ox O2 Del Method 08/21/22 15:03 37.1 C 86 16 103/65 96 Room Air 08/21/22 11:37 36.9 C 73 16 107/66 95 Room Air 08/21/22 07:43 36.5 C 75 16 134/73 97 Room Air PG Care Time/CCT Total # of Minutes Spent Total Time Spent with Patient: Total time spent is greater than 50% in coordination of care (as documented) at patient's floor/unit and/or counseling patient: Coding Level of Care Code 55788 SUB INP/OBS CARE MIN Diagnoses Fall W19.XXXA Encounter type: initial encounter Closed right femoral fracture S72.91XA Encounter type: initial encounter Femur location: unspecified portion of femur Fracture morphology: unspecified fracture morphology Hypothyroidism E03.9 Hyperglycemia R73.9 Depression with anxiety F41.8 (1) Fall Encounter type: initial encounter Qualified Code(s): W19.XXXA - Unspecified fall, initial encounter (2) Closed right femoral fracture Encounter type: initial encounter Femur location: unspecified portion of femur Fracture morphology: unspecified fracture morphology Qualified Code(s): S72.91XA - Unspecified fracture of right femur, initial encounter for closed fracture
--- NOTE | 2022-08-21 20:52 | Progress Notes ---
DATE OF SERVICE: 08/21/2022. SUBJECTIVE: A 77-year-old female, now postop day 3 from IM nailing of right intertrochanteric/subtro chanteric fracture. She seems to be doing a bit better every day. Some pain, but seems manageable. No new complaints. OBJECTIVE: VITAL SIGNS: Temperature 37.1. Vital signs are stable. GENERAL: Shows an elderly, frail female. She is sitting up in her bedside chair and looks pretty co mfortable. Looks a little bit better each day. EXTREMITIES: Examination of the right hip reveals dressing to be clean, dry and intact. Leg length is equal. He is neurologically intact. LABORATORY DATA: No new labs. ASSESSMENT: A 77-year-old female postoperative day 3 from IM nailing of right intertrochanteric/subt rochanteric fracture. Orthopedically, she is doing well. She seems to be getting a little bit denny r each day. PLAN: 1. DVT prophylaxis including thigh-high TEDs, SCDs, and recommend baby aspirin twice a day for 6 wee ks. 2. PT/OT. She can weight bear as tolerated on the right leg. 3. Pain control, doing okay with current pain regimen. 4. Disposition: She is orthopedically okay for discharge any time medically stable. I need to see her back in 2-3 weeks out from surgery date. Any orthopedic questions can be directed to me at [phone]. Job ID: [id number]
[2022-08-21] MEDS: SERTRALINE HCL 100 MG TABLET PO SCH (23:14)
[2022-08-21] MEDS: DOCUSATE SODIUM/SENNA 50/8.6MG TAB PO SCH (23:15)
[2022-08-21] MEDS: ACETAMINOPHEN 325 MG TAB PO PRN (23:17)
[2022-08-22] MEDS: LEVOTHYROXINE SODIUM 88 MCG TABLET PO SCH (05:49)
--- NOTE | 2022-08-22 08:12 | Progress Notes ---
DATE OF SERVICE: 08/22/2022. SUBJECTIVE: A 77-year-old female, postoperative day #4 from IM nailing of a right intertrochanteric/ subtrochanteric fracture. She seems to be doing okay this morning. Just getting up. No new complai nts. OBJECTIVE: VITAL SIGNS: Temperature 36.8. Vital signs are stable. GENERAL: Shows a pleasant, elderly female. She is just getting up this morning. EXTREMITIES: Examination of the right hip and leg reveals the dressing to be clean, dry and intact. Leg lengths are equal. Her thigh is soft and supple. She is neurologically intact. ASSESSMENT: A 77-year-old female, postoperative day #4 from IM nailing of a right intertrochanteric/ subtrochanteric fracture. Orthopedically, she seems to be doing okay. PLAN: 1. DVT prophylaxis including thigh-high TEDs, SCDs and we would recommend a baby aspirin twice a day for 6 weeks. 2. PT/OT, weightbear as tolerated. She can fully weightbear on this right leg. 3. Pain control, seems to be doing okay with current pain regimen. 4. Routine wound care of right hip. Dry dressing once a day. 5. Disposition: She is orthopedically okay for discharge any time medically stable. I need to see her back two to three weeks out from surgery date. Any orthopedic questions can be directed to me at [phone]. Job ID: [id number]
[2022-08-22] MEDS: ASPIRIN 81 MG ECTAB PO SCH (08:50)
[2022-08-22] MEDS: buPROPion XL 150 MG TABCR PO SCH (08:51)
[2022-08-22] MEDS: DOCUSATE SODIUM/SENNA 50/8.6MG TAB PO SCH (08:51)
[2022-08-22] MEDS ORDERED: POLYETHYLENE (MIRALAX) 17 GM PACK PO SCH (09:00)
[2022-08-22] MEDS: ACETAMINOPHEN 325 MG TAB PO PRN (10:20)
--- NOTE | 2022-08-22 13:48 | Discharge Summary ---
Date of Service August 22, 2022 Admission HPI Per Admitting Provider Sri is a 77-year-old female with a past medical history of hypothyroidism, hyperglycemia, degenerative scoliosis, osteoporosis who BIBA after patient was found down by her after she tripped over a blanket causing her to fall to her right hip and sustaining a hip fracture. Thi smorning she had to use the bathroom when her foot got caught on the floor and she lost her balance. She fell down and immediately had pain and inability to bear weight on her R femur. Could not stand on several attempts, so she crawled to the bathroom/toilet but still could not raise herself up to the toilet. Could not get to bathroom so had a BM on the floor. Shuffled to the wall, felt very cold because the tile floors were cold and was laying on the bar floor but had trouble making it to the rug which was warming. Around 9am or when it became light out her found her and called the [facility]. She did not pass out at any point, she tripped which caused her fall. She does not think she hit her head, fell off to the right side and hig against something. Thinks she may have got caugh in her blankets. No chest pain or chest pressure. no shortness of breath. No lightheadedness or dizziness No history of DM or antiglycemic medication use No history of heart disease or ID. No hsitory of strokes of ministrokes No history of high blood pressure, typically her BP is ~124/70s. No current or former history of tobacco use. No alcohol. No recreational or medial marijuana use. Has been taking tylenol and advil x2 days for shoulder and back arthritis. Has some R wrist aching from arthritis. No numbness/tingling or strength loss. Medical History: Reviewed Medications: Reviewed. Did not ttake any medications 08/17. Uses lorazepam for sleep, hasnt needed since being on sertraline. Surgical History: Reviewed Family history: Reviewed Allergies: Reviewed. Allergic to sulfa and ibuprofen (throat involvement and swelling). Has been taking tylenol and advil for two days and has been tolerating OK with no reaction. Social History: No tobacco, etoh, rec drug, or marijuana use Code Status: Full Code Principal Diagnosis closed right femoral fracture Discharge Exam General: Awake, conversant, pleasantly confused Heart: S1, S2/regular rate and rhythm, no murmur rubs or gallops Lungs: Clear to auscultation bilaterally. Normal effort Abdomen: Soft/nontender/nondistended. No hepatosplenomegaly Extremities: No clubbing/cyanosis. No edema Behavior: Appropriate, cooperative Discharge Data Allergies Allergy/AdvReac Type Severity Reaction Status Date / Time shellfish derived Allergy Unknown RASH,HIVES, Verified 08/17/22 12:15 DIARRHEA ibuprofen AdvReac Unknown SORE THROAT Verified 08/17/22 12:15 Sulfa (Sulfonamide AdvReac Unknown THROAT Verified 08/17/22 12:15 Antibiotics) CLOSING sulindac AdvReac Unknown "SORE Verified 08/17/22 12:15 THROAT" Advil CAPS Allergy Mild Hives Uncoded 08/17/22 12:15 Clinoril TABS Allergy Mild Rash Uncoded 08/17/22 12:15 Dust Allergy Unknown COUGHING,CO Uncoded 08/17/22 12:15 NGESTION Consultations 08/17/22 12:21 ED Decision to Admit Stat 08/18/22 09:00 Consult Orthopedic Surgery Routine Procedures Performed Operation Date: 08/18/22 08:20 Actual Procedures p Right Long Troch Nail(Right) - Jaciel Banks MD Ordered Studies 08/17/22 10:29 CT cervical spine wo con Stat CT head/brain wo con Stat 08/18/22 FL hip RT 2-3V Routine Hospital Course (1) Fall: This was a mechanical fall Led to a right femoral fracture (2) Closed right femoral fracture: Hip and pelvis x-ray: Mildly displaced intertrochanteric fracture of proximal right femur extending into the proximal shaft with 1 cm medial displacement CThead: No acute intracranial abnormality. Atrophy and microvascular ischemic changes are noted Chest x-ray: No acute findings CTC-spine: No fractures of the cervical spine are noted status post status post intramedullary nailing of right intertrochanteric/subtrochanteric fracture on 08/18 Pain control with morphine and Tylenol SCDs for DVT prophylaxis. baby aspirin twice daily for 6 weeks as DVT prophylaxis per surgical team PT/OT on board Patient to be discharged. Patient requiring tylenol and limited morphine. Will discharge patient on scheduled tylenol. x-ray order was repeated prior to discharge per family request. (3) Hypothyroidism: Continue Synthroid 88 mcg daily (4) Hyperglycemia: Most likely stress related Recent A1c in June was 5.4 (5) Depression with anxiety: Continue sertraline 100 mg daily Continue bupropion 150 mg XR Continue [employer] 0.25 lorazepam nightly as needed for anxiety. Patient has not needed this regularly recently Total Time Total Time Spent Total Time Spent (In Minutes): 32 Discharge Plan Discharge Items Patient Disposition: Transfer Long Term Fac Reason For Visit: r hip fracture Discharge Diagnosis: IM Nailing of Right Hip Fracture Activity: Per Instructions section Weightbearing: Full weightbearing Non-emergency contact: Primary Care Provider Call non-emergency contact if: you have any medication questions Follow-up/Referrals: Rosas Green MD [Primary Care Provider] - Jaciel Banks MD [Physician] - (Orthopedic follow-up 2-3 weeks from surgery date) Diet: Low Sodium (2gm) Addtl Attending Provider Instructions: 1 recommend a baby aspirin twice a day for 6 weeks. 2. PT/OT, weightbear as tolerated. She can fully weightbear on this right leg. 3. Pain control, seems to be doing okay with current pain regimen. 4. Routine wound care of right hip. Dry dressing once a day. 5. Followup with Dr. Banks in two to three weeks out from surgery date. Pending Studies at Discharge: No Stand-Alone Forms: My [facility] Skilled Items Patient informed of condition?: Yes DNR: No Discharge Level of Care: Acute rehab Communicable Disease: No Discharge Prognosis: Stable Lines: None Urinary Catheter: No Medications and DC Order Prescriptions: New polyethylene glycol 3350 [Miralax] 17 gram Powder In Packet 17 g PO DAILY Qty: 30 0RF sennosides-docusate sodium [Senokot-S] 8.6-50 mg Tablet 1 tab PO QAM Qty: 30 0RF aspirin 81 mg Tablet,Delayed Release (Dr/Ec) 81 mg PO BID Qty: 60 0RF melatonin 3 mg Tablet 3 mg PO HS PRN (Reason: insomnia) Qty: 30 0RF acetaminophen 325 mg capsule 650 mg PO Q6H 14 Days Qty: 112 0RF Rx Instructions: for 2 weeks Continued cholecalciferol (vitamin D3) 50 mcg (2,000 unit) tablet 50 mcg PO DAILY Qty: 30 0RF albuterol sulfate [ProAir HFA] 90 mcg/actuation HFA aerosol inhaler 2 puff INH Q4H PRN (Reason: shortness of breath or wheezing) Qty: 18 4RF Rx Instructions: 2 puffs every 4 to 6 hours as needed sumatriptan succinate 100 mg tablet 100 mg PO Q2H PRN (Reason: migraine headache) Qty: 10 5RF Rx Instructions: Take 1 tablet at onset of migraine headache May repeat in 2 hours if needed not to exceed two daily tablets bupropion HCl 150 mg tablet extended release 24 hr 150 mg PO QAM Qty: 90 3RF levothyroxine 88 mcg tablet 88 mcg PO DAILY Qty: 90 3RF calcium-vitamin D3-vitamin K 500-500-40 mg-unit-mcg tablet,chewable 2 tab PO BID lactobacillus combo #5 150 mg (2 billion cell) Tablet,Delayed Release (Dr/Ec) 0 mg PO DAILY sertraline 100 mg tablet 100 mg PO HS Discontinued lorazepam 0.5 mg tablet 0.25 - 0.5 mg PO HS PRN (Reason: anxiety) Qty: 30 0RF Discharge Orders: Discharge Order (Routine); Ordered 08/22/22 Ordered By: Mitch Navarro Admission Data Admit Date/Time: 08/17/22 13:10 Attending Provider: Mitch Navarro Admit Provider: Zbigniew Nair Primary Care Provider: Rosas Green Other Providers: Zbigniew Nair ; Jaciel Banks ; [facility] ; [facility] ; [facility] Coding Level of Care Code 75456 INP/OBS DISCH >30 MIN Diagnoses Fall W19.XXXA Encounter type: initial encounter Closed right femoral fracture S72.91XA Encounter type: initial encounter Femur location: unspecified portion of femur Fracture morphology: unspecified fracture morphology Hypothyroidism E03.9 Hyperglycemia R73.9 Depression with anxiety F41.8
--- NOTE | 2022-08-22 15:00 | XRay Report ---
XR hip RT 2V w pelvis CLINICAL HISTORY: pain COMPARISON: Pelvis and right hip radiographs August 17, 2022. Intraoperative fluoroscopic images of th e right hip August 18, 2022. FINDINGS: Sacroiliac joints and symphysis pubis are intact. There is moderate to severe bilateral hi p osteoarthritis. There are stable postoperative findings following internal fixation of the intertro chanteric/subtrochanteric fracture of the right femur with intramedullary nailing. Alignment is simil ar to intraoperative radiographs of August 18, 2022. No additional fractures are present. There is a d istal screw. There are no unexpected radiopaque foreign bodies. Skin christi are present. IMPRESSION: Stable postoperative findings following open reduction and internal fixation of the inter trochanteric/subtrochanteric fracture of the right femur. Hardware intact. ACT 112: Negative or not required by law. Electronically signed by: Real Edwards M.D. 08/22/2022 2:59 PM
== END 2022-08-22 15:00 | DRG 482 ==
LOC: ED 10:20 → SUATTDRO 13:10 → 3N 13:10

== ENCOUNTER 2024-06-02 06:47 | Inpatient (IN) ==
[2024-06-02] MEDS: methylPREDNISolone 125 MG/2 ML VIAL IV STA (07:00)
[2024-06-02] MEDS: OPTIRAY 320 125ml IV ONE (07:06)
--- NOTE | 2024-06-02 07:06 | Emergency Department Note ---
Impression & Plan AMS (altered mental status), Acute CVA (cerebrovascular accident) ED Provider Note Provider: Norberto Sims MD CHIEF COMPLAINT: Altered mental status HISTORY OF PRESENT ILLNESS: Patient is a 78-year-old female history of Alzheimer's dementia, hypothyroidism, osteoporosis presenting here today via ambulance from [facility]. Patient evidently resides there and has some mild confusion at baseline but walks with a walker. According to EMS report patient was found by staff at 5:45 AM this morning not responding normally. Having some snoring respirations and pupils were minimally reactive. No narcotics are on the patient's medication list and she has been unable to speak. Vitals were otherwise reported to be normal there was concerns for some increased right-sided weakness and she was sent here for further evaluation. According to EMS the patient evidently was a bit unwell yesterday. Patient herself nonverbal when answered questions occasionally a slight grunt. Attempted to contact facility as well as patient's listed as emergency contact without answer --later ascertained that he is recently . Facility later contacted and got additional information. Evidently fell (slide out of bed?) yesterday morning, but was able to talk and move ok. Happened once before in past that spontaneously improved. Has a history of "shutting down" when stressed in the past. PAST MEDICAL HISTORY: As noted above MEDICATIONS: Reviewed medication list from the facility SOCIAL HISTORY: , resides in assisted living PHYSICAL EXAM: GENERAL: alert on stretcher with sonorous respirations. Head: normocephalic and atraumatic EYES: No injection, discharge or icterus. PERRL but 3 mm bilaterally, EOMI. does track to me on exam NECK: Trachea midline. ENT: Mucous membranes pink and slightly dry LUNGS: Airway patent. No retractions. Breath sounds clear with some slight sonorous respirations appreciable. No work of breathing. HEART: Regular rate and rhythm. No chest wall tenderness ABDOMEN: Soft and non-tender, without guarding or rebound. SKIN: Acyanotic, warm, dry, without rashes EXTREMITIES: Without swelling, tenderness or deformity NEUROLOGICAL: Nonverbal and occasional grunt. Follows some commands with some squeeze of the left hand and left greater than right toe movement to command. Is able to lift left leg slightly on the left. No straight leg raise on the right. Appears to have some right-sided facial droop to command. Tongue grossly midline. EK bpm normal sinus rhythm. No PVC or PAC. No acute ST segment elevation or depression with QTc of 412. CONTINUOUS CARDIAC MONITORING: was ordered and showed a heart rate of 50s to 60s bpm in normal sinus rhythm to sinus bradycardia Patient's laboratory studies and imaging reviewed. Differential includes Infection, dehydration, metabolic abnormality, hypo/hyperglycemia, electrolyte disturbance, anemia, hypoxia, cardiac sources, intracerebral event, toxicologic, neurologic, as well as other pathologies. IMPRESSION/MEDICAL DECISION MAKING: Patient presents without a clear last known well. Seems to been found this way around 5:45 AM. Patient with some underlying dementia but this sounds like a significant change and appears to have some right-sided deficits. Made a stroke alert. Was able to eventually contact facility for more information but it seems that she is likely outside of the thrombolytic window. Started to be a bit off and lethargic yesterday. Had a very minimal fall out of bed. Exact details unclear. Evidently has had a brief episode of being a little bit off in the past due to stress. Given a dose of IV steroids given the shellfish allergy listed as we do want to obtain CT angiograms to look for any large vessel occlusion. Afebrile here. Some slightly sonorous respirations but appears to be protecting her airways reasonably upon initial evaluation and is not hypoxic. Will send a VBG as well as broad metabolic and infectious workup. Contact with son via phone who lives in the [place] region. He was planning on coming up today and will come later this afternoon. Reports they are planning to move her to [place] tomorrow. Blood work here without significant acidosis or hypercarbia. Very slight white blood cell count of 11.7 but no anemia or thrombocytopenia. Procalcitonin not significantly elevated. Again given the unclear last known well do not believe there is an indication for thrombolytics. CT and CT angiograms completed without evidence of significant reaction. Some delay in radiology reports, but later returned with without evidence of acute blood but concerns for left bowel MAC and occipital CVA/infarct with likely a left posterior cerebral artery almost 100% occlusion. Did reach out discussed with the telestroke doctors at [facility]. Again given the last known well is unclear not a thrombolytic candidate. Patient drowsy on exam minimal gag but appears to be protecting airway reasonably at this time. Discussed with telestroke CT findings concern for possible HEALTHCARE ECONOMICS MANAGER occlusion. Do question her symptomatology is related to thalmic/midbrain injury from CVA. Discussion with telestroke given the significant CT findings already did not recommend any intervention beyond aspirin. Did reach out discussed with son Chris. He relates that her living will indicates that she was in a permanently severely disabled state/vegetative state/coma she would not want any significant inventions and comfort measures by his report. Did discuss with him given her significant stroke burden at this time I fear she will have very poor outcome and will likely be severely disabled if she survives. He was in agreement with proximal at this time although they are necessary at and again is planning to come with his other brother later this afternoon. Discussed with the hospitalist for further care here DIAGNOSIS: Altered mental status, CVA DISPOSITION: Hospitalist will evaluate Patient was agreeable with this plan. Past Med/Surg History Problem List (Updated 06/02/24 @ 10:39 by Trevor Mo PA-C) Comfort measures only status Hypokalemia Acute CVA (cerebrovascular accident) (Acute) AMS (altered mental status) (Acute) Alzheimer's dementia Glenohumeral arthritis History of colon polyps Cerebral microvascular disease Memory change Cerumen in auditory canal on examination Encounter for pre-operative examination Fall (Acute) Degenerative scoliosis Chronic right sacroiliac joint pain Dysmetabolic syndrome X (Acute) Hyperglycemia Common migraine without aura (Acute) Depression with anxiety (Acute) Extrinsic asthma (Acute) inhaler prn Allergic rhinitis Insomnia Hypothyroidism Osteoporosis Medical History Closed right femoral fracture (08/17/22) History of colon polyps Diverticulosis Dementia Osteoarthritis Hearing deficit Panic attacks Surgical History History of left cataract surgery History of hip surgery History of surgery History of tooth extraction Hx of colonoscopy (2018) Family History Aunt Breast cancer Mother Cancer Father Prostate cancer Diabetes Hypertension Grandmother (Paternal) Myocardial infarction Other No family history of adverse response to anesthesia Denies family history of Ovarian cancer Social History Smoking Status: Unknown if ever smoked Second Hand Exposure: No; Do You Dip or Chew Tobacco: No; Hx Alcohol Use: No Hx Substance Use: No Preferred Language: Azeri Communication Ability: Effective Communication Ability Comment: pt has dimentia/pt Hunter MORRIS and will be here dos. Visual Impairment: No Limitations Hearing Ability: Use of Hearing Aid Machine Straw Hat Presser Required: No Beliefs That Will Affect Care: None marital status: Current Living Situation: Spouse current occupational status: retired Feels Safe at Home: Yes Childhood Exposure to Second-Hand Smoke: No Dental Care, Regularly: Yes Physical Activity Frequency: 3-4 Times per Week Seatbelt Use: always Sunscreen Use: No Assistive Devices: Glasses, Hearing Aid - Bilateral and Walker Allergies Allergies Allergy/AdvReac Type Severity Reaction Status Date / Time Sulfa (Sulfonamide Allergy Severe THROAT Verified 03/08/24 15:58 Antibiotics) CLOSING shellfish derived Allergy Intermediate RASH,HIVES, Verified 03/08/24 15:58 DIARRHEA house dust Allergy Cough Verified 03/08/24 15:58 diphenhydramine AdvReac Intermediate vomits Verified 03/08/24 15:58 [From Advil PM] ibuprofen [From Advil PM] AdvReac Intermediate vomits Verified 03/08/24 15:58 sulindac AdvReac Intermediate "SORE Verified 03/08/24 15:58 THROAT" Home Meds Home Medications Medication Instructions Recorded Confirmed calcium 500 mg-vitamin D3 500 1 tab PO QPM 05/11/19 06/02/24 unit-vitamin K 40 mcg chewable tablet cholecalciferol (vitamin D3) 50 50 mcg PO QPM 12/18/22 06/02/24 mcg (2,000 unit) tablet magnesium chloride 71.5 mg 71.5 mg PO QPM 12/18/22 06/02/24 (magnesium chloride) tablet,delayed release (Slow-Mag) multivitamin 1 tab PO QPM 12/18/22 06/02/24 vitamin B complex 1 cap PO DAILY 06/26/23 06/02/24 Previous Rx's Medication Instructions Recorded albuterol sulfate 90 mcg/actuation 2 puff inhalation Q4H PRN 04/28/23 aerosol inhaler (ProAir HFA) shortness of breath or wheezing #18 grams acetaminophen 650 mg 650 mg PO DAILY #90 tabs 01/28/24 tablet,extended release (Tylenol 8 Hour) aspirin 81 mg tablet,delayed 81 mg PO QAM #90 tabs 01/28/24 release calcium carbonate (Tums Ultra) 400 mg PO DAILY #90 tabs 01/28/24 ibuprofen 125 mg-acetaminophen 250 3 tab PO BID #270 tabs 01/28/24 mg tablet (Advil Dual Action) ibuprofen 200 mg tablet (Advil) 200 mg PO QAM #90 tabs 01/28/24 levothyroxine 88 mcg tablet 88 mcg PO QAM #90 tabs 01/28/24 melatonin 5 mg tablet 5 mg PO HS PRN sleep #90 tabs 01/28/24 [id number]-[id number]-[id number] 8 mg-folic 400 1 tab PO QAM #90 tabs 01/28/24 mcg-K 50 mcg-lutein 300 mcg tablet (Centrum Silver Women) rosuvastatin 5 mg tablet 5 mg PO HS #90 tabs 01/28/24 diclofenac sodium 1 % topical gel 4 g topical QID #100 grams 02/25/24 Results & Data (ED) Vital Signs Vital Signs - 24 hr 06/02/24 07:02 06/02/24 07:09 06/02/24 07:14 Temperature 36.6 C Temperature Source Axillary Pulse Rate 77 63 Pulse Rate [Apical] Pulse Rate from SpO2 Sensor 60 Respiratory Rate 20 17 Blood Pressure 124/96 190/92 H Blood Pressure [Right Arm] Blood Pressure Mean 105 124 Blood Pressure Mean [Right Arm] Pulse Oximetry 94 94 Oxygen Delivery Method Room Air Room Air Room Air Sepsis Recent Fever Within 48 Hours No Sepsis New/Unexplained Change in Mental Status No Sepsis Action Taken by Nursing No Action Required 06/02/24 07:24 06/02/24 07:26 06/02/24 07:32 Temperature Temperature Source Pulse Rate 64 65 62 Pulse Rate [Apical] Pulse Rate from SpO2 Sensor 62 Respiratory Rate 21 20 Blood Pressure 167/65 H Blood Pressure [Right Arm] Blood Pressure Mean 99 Blood Pressure Mean [Right Arm] Pulse Oximetry 93 94 Oxygen Delivery Method Room Air Room Air Sepsis Recent Fever Within 48 Hours Sepsis New/Unexplained Change in Mental Status Sepsis Action Taken by Nursing 06/02/24 07:48 06/02/24 08:00 06/02/24 08:15 Temperature Temperature Source Pulse Rate 56 L 55 L 55 L Pulse Rate [Apical] Pulse Rate from SpO2 Sensor 56 L 55 L 56 L Respiratory Rate 16 17 16 Blood Pressure 117/69 Blood Pressure [Right Arm] Blood Pressure Mean 85 Blood Pressure Mean [Right Arm] Pulse Oximetry 94 96 96 Oxygen Delivery Method Room Air Room Air Room Air Sepsis Recent Fever Within 48 Hours Sepsis New/Unexplained Change in Mental Status Sepsis Action Taken by Nursing 06/02/24 08:30 06/02/24 09:09 06/02/24 09:30 Temperature Temperature Source Pulse Rate 58 L 73 73 Pulse Rate [Apical] Pulse Rate from SpO2 Sensor 58 L 70 64 Respiratory Rate 19 19 18 Blood Pressure 163/94 H 134/72 Blood Pressure [Right Arm] Blood Pressure Mean 117 92 Blood Pressure Mean [Right Arm] Pulse Oximetry 95 93 93 Oxygen Delivery Method Room Air Room Air Room Air Sepsis Recent Fever Within 48 Hours Sepsis New/Unexplained Change in Mental Status Sepsis Action Taken by Nursing 06/02/24 09:51 06/02/24 12:00 06/02/24 12:20 Temperature Temperature Source Pulse Rate 60 64 Pulse Rate [Apical] 61 Pulse Rate from SpO2 Sensor 62 Respiratory Rate 21 18 Blood Pressure 131/74 Blood Pressure [Right Arm] 121/71 Blood Pressure Mean 93 Blood Pressure Mean [Right Arm] 87 Pulse Oximetry 94 93 Oxygen Delivery Method Room Air Room Air Sepsis Recent Fever Within 48 Hours Sepsis New/Unexplained Change in Mental Status Sepsis Action Taken by Nursing Laboratory Data 06/02/24 06:50 06/02/24 06:50 Lab Results 06/02/24 06/02/24 06/02/24 Range/Units 06:50 06:58 07:24 WBC 11.78 H (4.8-10.8) K/ul RBC 4.67 (4.20-5.40) M/uL Hgb 15.4 (12.0-16.0) g/dl POC Hgb 15.3 (12.0-16.0) g/dl Hct 44.0 (37.0-47.0) % POC Hct 45 (37-47) % MCV 94.2 (80.0-100.0) fL MCH 33.0 (25.0-34.0) pg MCHC 35.0 (32.0-36.0) g/dL RDW Std Deviation 42.9 (36.4-46.3) fL RDW Coeff of Rah 12.5 (11.5-14.5) % Plt Count 298 (130-400) K/uL MPV 10.2 (9.4-12.4) fL Immature Gran % (Auto) 0.4 % Neut % (Auto) 70.2 % Lymph % (Auto) 17.9 % Walton % (Auto) 11.0 % Eos % (Auto) 0.4 % Baso % (Auto) 0.1 % Neut # (Auto) 8.26 H (1.40-6.50) K/uL Lymph # (Auto) 2.11 (1.20-3.40) K/uL Walton # (Auto) 1.30 H (0.11-0.59) K/uL Eos # (Auto) 0.05 (0.00-0.50) K/uL Baso # (Auto) 0.01 (0.00-0.20) K/uL Immature Gran # (Auto) 0.05 (0.01-0.20) K/uL PT 10.7 (9.0-12.0) Seconds INR 1.0 (0.9-1.1) VBG pH 7.42 H (7.36-7.41) VBG pCO2 38 (38-50) mmHg VBG pO2 43 mmHg VBG HCO3 25 mmol/L VBG O2 Saturation 71.1 % VBG Base Excess 0.3 mEq/L POC Sodium 142 (135-144) mmol/L Sodium 142 (136-145) mmol/L POC Potassium 3.3 (3.3-5.0) mmol/L Potassium 3.3 L (3.5-5.1) mmol/L POC Chloride 107 (101-112) mmol/L Chloride 107 (98-107) mmol/L Carbon Dioxide 26 (21-32) mmol/L POC Total CO2 23 L (24-31) mmol/L Anion Gap 9 (3-11) POC Anion Gap 16.0 (16-25) mmol/L POC BUN 23 H (7-18) mg/dl BUN 25 H (6-23) mg/dl Creatinine 0.67 (0.6-1.2) mg/dl POC Creatinine 0.7 (0.6-1.3) mg/dl Est Cr Clr Drug Dosing 53.8 ml/min eGFR 88.85 BUN/Creatinine Ratio 37.3 H (10-20) Glucose 94 (70-99(Fasting)) mg/dl POC Glucose (other) 93 (70-99) mg/dl Calcium 9.1 (8.6-10.3) mg/dl POC Ioniz Calcium Maggie 1.13 (1.12-1.32) mmol/l Magnesium 2.2 (1.7-2.4) mg/dl Total Bilirubin 0.8 (0.2-1.0) mg/dl AST 27 (13-39) U/L ALT 19 (7-52) U/L Alkaline Phosphatase 56 (34-104) U/L Troponin I High Sens 24.6 H (0-14) pg/ml Total Protein 7.6 (6.0-8.3) gm/dl Albumin 4.0 (3.4-5.0) gm/dl Globulin 3.6 (2.5-4.0) gm/dl Albumin/Globulin Ratio 1.1 (0.9-2) Procalcitonin 0.04 (0-0.5) ng/ml TSH 1.349 (0.300-4.500) uIu/ml Urine Color Urine Appearance (Clear) Urine pH (4.5-7.5) Ur Specific [place] (1.000-1.030) Urine Protein (Negative) Urine Glucose (UA) (Negative) Urine Ketones (Negative) Urine Blood (Negative) Urine Nitrite (Negative) Urine Bilirubin (Negative) Urine Urobilinogen (Negative) Ur Leukocyte Esterase (Negative) Adenovirus (PCR) Not Detected (NotDetected) B. pertussis DNA (PCR) Not Detected (NotDetected) B.parapertussis DNA PCR Not Detected (NotDetected) C. pneumoniae DNA (PCR) Not Detected (NotDetected) Coronavirus OC43 (PCR) Not Detected (NotDetected) Coronavirus HKU1 (PCR) Not Detected (NotDetected) Coronavirus 229E (PCR) Not Detected (NotDetected) SARS-CoV-2 (PCR) Not Detected (NotDetected) Coronavirus NL63 (PCR) Not Detected (NotDetected) Human Metapneumovir PCR Not Detected (NotDetected) Influenza Type A (PCR) Not Detected (NotDetected) Influenza Type B (PCR) Not Detected (NotDetected) M. pneumoniae (PCR) Not Detected (NotDetected) Parainfluenza 1 (PCR) Not Detected (NotDetected) Parainfluenza 2 (PCR) Not Detected (NotDetected) Parainfluenza 3 (PCR) Not Detected (NotDetected) Parainfluenza 4 (PCR) Not Detected (NotDetected) RSV (PCR) Not Detected (NotDetected) Entero/Rhino (PCR) Not Detected (NotDetected) 06/02/24 06/02/24 Range/Units 08:50 09:40 WBC (4.8-10.8) K/ul RBC (4.20-5.40) M/uL Hgb (12.0-16.0) g/dl POC Hgb (12.0-16.0) g/dl Hct (37.0-47.0) % POC Hct (37-47) % MCV (80.0-100.0) fL MCH (25.0-34.0) pg MCHC (32.0-36.0) g/dL RDW Std Deviation (36.4-46.3) fL RDW Coeff of Rah (11.5-14.5) % Plt Count (130-400) K/uL MPV (9.4-12.4) fL Immature Gran % (Auto) % Neut % (Auto) % Lymph % (Auto) % Walton % (Auto) % Eos % (Auto) % Baso % (Auto) % Neut # (Auto) (1.40-6.50) K/uL Lymph # (Auto) (1.20-3.40) K/uL Walton # (Auto) (0.11-0.59) K/uL Eos # (Auto) (0.00-0.50) K/uL Baso # (Auto) (0.00-0.20) K/uL Immature Gran # (Auto) (0.01-0.20) K/uL PT (9.0-12.0) Seconds INR (0.9-1.1) VBG pH (7.36-7.41) VBG pCO2 (38-50) mmHg VBG pO2 mmHg VBG HCO3 mmol/L VBG O2 Saturation % VBG Base Excess mEq/L POC Sodium (135-144) mmol/L Sodium (136-145) mmol/L POC Potassium (3.3-5.0) mmol/L Potassium (3.5-5.1) mmol/L POC Chloride (101-112) mmol/L Chloride (98-107) mmol/L Carbon Dioxide (21-32) mmol/L POC Total CO2 (24-31) mmol/L Anion Gap (3-11) POC Anion Gap (16-25) mmol/L POC BUN (7-18) mg/dl BUN (6-23) mg/dl Creatinine (0.6-1.2) mg/dl POC Creatinine (0.6-1.3) mg/dl Est Cr Clr Drug Dosing ml/min eGFR BUN/Creatinine Ratio (10-20) Glucose (70-99(Fasting)) mg/dl POC Glucose (other) (70-99) mg/dl Calcium (8.6-10.3) mg/dl POC Ioniz Calcium Maggie (1.12-1.32) mmol/l Magnesium (1.7-2.4) mg/dl Total Bilirubin (0.2-1.0) mg/dl AST (13-39) U/L ALT (7-52) U/L Alkaline Phosphatase (34-104) U/L Troponin I High Sens 17.7 H D (0-14) pg/ml Total Protein (6.0-8.3) gm/dl Albumin (3.4-5.0) gm/dl Globulin (2.5-4.0) gm/dl Albumin/Globulin Ratio (0.9-2) Procalcitonin (0-0.5) ng/ml TSH (0.300-4.500) uIu/ml Urine Color Yellow Urine Appearance Clear (Clear) Urine pH 5.5 (4.5-7.5) Ur Specific [place] 1.037 H (1.000-1.030) Urine Protein Negative (Negative) Urine Glucose (UA) Negative (Negative) Urine Ketones 1+ H (Negative) Urine Blood Negative (Negative) Urine Nitrite Negative (Negative) Urine Bilirubin Negative (Negative) Urine Urobilinogen Negative (Negative) Ur Leukocyte Esterase Negative (Negative) Adenovirus (PCR) (NotDetected) B. pertussis DNA (PCR) (NotDetected) B.parapertussis DNA PCR (NotDetected) C. pneumoniae DNA (PCR) (NotDetected) Coronavirus OC43 (PCR) (NotDetected) Coronavirus HKU1 (PCR) (NotDetected) Coronavirus 229E (PCR) (NotDetected) SARS-CoV-2 (PCR) (NotDetected) Coronavirus NL63 (PCR) (NotDetected) Human Metapneumovir PCR (NotDetected) Influenza Type A (PCR) (NotDetected) Influenza Type B (PCR) (NotDetected) M. pneumoniae (PCR) (NotDetected) Parainfluenza 1 (PCR) (NotDetected) Parainfluenza 2 (PCR) (NotDetected) Parainfluenza 3 (PCR) (NotDetected) Parainfluenza 4 (PCR) (NotDetected) RSV (PCR) (NotDetected) Entero/Rhino (PCR) (NotDetected) Administered Medications Discontinued Medications Aspirin (Aspirin 300 Mg Supp) [address] ONE ONE Stop: 06/02/24 08:45 Last Admin: 06/02/24 09:32 Dose: 300 mg Documented By: MITCH Ioversol (Optiray 320 125ml) 120 ml IV ONCE ONE Stop: 06/02/24 07:06 Last Admin: 06/02/24 07:06 Dose: 120 ml Documented By: PRINCE Methylprednisolone (Methylprednisolone 125 Mg/2 Ml Vial) 125 mg IV NOW STA Stop: 06/02/24 06:57 Last Admin: 06/02/24 07:00 Dose: 125 mg Documented By: MITCH Imaging Data Radiologist's Impression: Chest X-Ray 06/02/24 06:52 XR chest 1V portable CLINICAL HISTORY: weakness TECHNIQUE: Single frontal radiograph of the chest was obtained. Comparison: Comparison is made to chest radiograph 08/17/2022 FINDINGS: No lines and tubes are seen. The aorta is tortuous. The remainder of the cardiomediastinal silhouette is unremarkable. Atelectasis is in the right lower lung. No evidence of pleural effusion or pneumothorax. IMPRESSION: Atelectasis is seen without other acute abnormality. ACT 112: Negative or not required by law. Electronically signed by: Arnulfo Nice M.D. 06/02/2024 8:[address] 06/02/24 06:56 CT OF THE HEAD WITHOUT CONTRAST CLINICAL HISTORY: AMS, R weak, nonverbal COMPARISON STUDY: Head CT August 17, 2022. MRI of the brain December 08, 2022. TECHNIQUE: Helical axial images of the head were obtained without IV contrast. Automated exposure control was utilized for the study. A dose lowering technique was utilized adhering to the principles of ALARA. Due to technical difficulties, request for interpretation was made at 8:05 AM on June 02, 2024. FINDINGS: No acute intracranial hemorrhage is present. The ventricular system is unremarkable. Basal cisterns are patent. There are no extra axial collections. A 4.3 x 3.3 cm hypodense focus with loss of matias-white differentiation within the left occipital lobe on image 13 is new since prior head CT and MRI. There is associated hypodensity within the medial left temporal lobe, likely involving the hippocampus. A 1.7 x 1.4 cm left thalamic hypodense focus is also new. There is no significant mass effect. A 1.5 x 0.9 cm hypodense focus within the central aspect of the mary ann on image 9 is more defined than on prior exam. IMPRESSION: 1. No acute intracranial hemorrhage. 2. 4.3 x 3.3 cm hypodense focus with loss of matias-white differentiation within the left occipital lobe and hypodensity within the medial left temporal lobe. 1.7 x 1.4 cm left thalamic hypodense focus. These are consistent with acute infarcts. Findings discussed with Dr. Sims at time of dictation. 3. 1.5 x 0.9 cm hypodense focus within the central aspect of the mary ann. This could represent an additional acute infarct or small vessel disease. ACT 112: Negative or not required by law. Z Electronically signed by: Real Edwards M.D. 06/02/2024 8:25 AM Head CTA 06/02/24 06:56 CTA ANGIOGRAPHY OF THE HEAD CLINICAL HISTORY: AMS, R weak, nonverbal COMPARISON STUDY: Head CT August 17, 2022. MRI of the brain December 08, 2022. TECHNIQUE: Helical axial images of the head were obtained following uneventful intravenous administration of 120 cc of Optiray. Sagittal and coronal reconstructions were viewed as well as maximal intensity projections on an independent 3-D workstation. Automated exposure control was utilized for the study. A dose lowering technique was utilized adhering to the principles of ALARA. Due to technical difficulties, request for interpretation was made at 8:05 AM on June 02, 2024. FINDINGS: Please note that the noncontrast head CT will be reported separately. No acute intracranial hemorrhage. Left HEALTHC[employer] ECONOMICS MANAGER distribution infarcts involving the left temporal and occipital lobes are better depicted on the head CT. There is also a left thalamic infarct. The bilateral M1, M2, A1 and A2 segments are patent. No vessel cut off within the anterior circulation is present. The left vertebral artery is dominant. The basilar artery is patent. There is trace flow within the left posterior cerebral artery. There may be clot within this vessel. The right posterior cerebral artery is unremarkable. There is no intracranial aneurysm. IMPRESSION: 1. Trace flow within the left posterior cerebral artery. The findings are suspicious for clot and would account for the acute appearing left HEALTHCARE ECONOMICS MANAGER distribution infarct shown on the noncontrast head CT. Findings discussed with Dr. Sims at time of dictation. 2. Otherwise, patent vessels. No intracranial aneurysms. ACT 112: Negative or not required by law. Electronically signed by: Real Edwards M.D. 06/02/2024 8:32 AM Neck CTA 06/02/24 06:56 CT angio neck with con CLINICAL HISTORY: AMS, R weak, nonverbal TECHNIQUE: CT angiography of the neck was performed following intravenous administration of iodinated contrast. Coronal and sagittal MIPS were obtained from the axial data set and were submitted for review. Automated dose lowering techniques and/or adjustment according to patient size were utilized for this examination. All measurements were calculated based on NASCET criteria. CT DOSE: 912.41 mGy.cm Comparison: None available at the time of this dictation. FINDINGS: Lungs and soft tissues are unremarkable. CTA Neck: A 3 vessel aortic arch is shown. There is no significant atherosclerotic plaque in the aortic arch or the origins of the innominate, left common carotid, and left subclavian arteries. The common carotid, external carotid, cervical segments of the internal carotid arteries, and the cervical segments of the vertebral arteries are patent without hemodynamically significant stenosis. The left vertebral artery is dominant. IMPRESSION: 1. No occlusion, hemodynamically significant stenosis, or dissection in the major cervical arteries. Assessment of stenosis of the internal carotid arteries is based on NASCET criteria. ACT 112: Negative or not required by law. Electronically signed by: Arnulfo Nice M.D. 06/02/2024 8:21 AM Discharge Plan Visit Data Chief Complaint: Stroke/CVA Symptoms Stated Complaint: Left Sided Deficits, AMS ED Provider: Norberto Sims Discharge Problem: AMS (altered mental status), Acute CVA (cerebrovascular accident) Patient Disposition: Being Evaluated by Hospitalist Forms Stand Alone Forms: My [facility] Prescriptions Prescriptions: No Action albuterol sulfate [ProAir HFA] 90 mcg/actuation HFA aerosol inhaler 2 puff INH Q4H PRN (Reason: shortness of breath or wheezing) Qty: 18 4RF Rx Instructions: 2 puffs every 4 to 6 hours as needed ibuprofen [Advil] 200 mg tablet 200 mg PO QAM Qty: 90 3RF ibuprofen-acetaminophen [Advil Dual Action] 125-250 mg tablet 3 tab PO BID Qty: 270 3RF aspirin 81 mg tablet,delayed release (DR/EC) 81 mg PO QAM Qty: 90 3RF Centrum Silver Women 8 mg iron-400 mcg-50 mcg tablet 1 tab PO QAM Qty: 90 3RF acetaminophen [Tylenol 8 Hour] 650 mg tablet extended release 650 mg PO DAILY Qty: 90 3RF calcium carbonate [Tums Ultra] 400 mg calcium (1,000 mg) tablet,chewable 400 mg PO DAILY Qty: 90 3RF rosuvastatin 5 mg tablet 5 mg PO HS Qty: 90 3RF melatonin 5 mg tablet 5 mg PO HS PRN (Reason: sleep) Qty: 90 3RF levothyroxine 88 mcg tablet 88 mcg PO QAM Qty: 90 3RF calcium-vitamin D3-vitamin K 500-500-40 mg-unit-mcg tablet,chewable 1 tab PO QPM vitamin B complex Capsule 1 cap PO DAILY diclofenac sodium 1 % gel 4 g topical QID Qty: 100 2RF Rx Instructions: apply to single knee, ankle, foot; for foot includes sole/toes/top of foot cholecalciferol (vitamin D3) 50 mcg (2,000 unit) tablet 50 mcg PO QPM multivitamin Tablet 1 tab PO QPM Slow-Mag 71.5 mg Tablet,Delayed Release (Dr/Ec) 71.5 mg PO QPM Referrals Referrals: Rosas Green MD [Primary Care Provider] -
[2024-06-02 07:08] VITALS: TEMP 97.9
[2024-06-02 07:27] LABS: Basophils # (auto) 0.01 K/uL (0.00-0.20); Basophils % (auto) 0.1 %; Eosinophils # (auto) 0.05 K/uL (0.00-0.50); Eosinophils % (auto) 0.4 %; Hemoglobin 15.4 g/dl (12.0-16.0); Immature Granulocytes # (auto) 0.05 K/uL (0.01-0.20); Immature Granulocytes % (auto) 0.4 %; Lymphocytes # (auto) 2.11 K/uL (1.20-3.40); Lymphocytes % (auto) 17.9 %; Mean Corpuscular Volume 94.2 fL (80.0-100.0); Mean Platelet Volume 10.2 fL (9.4-12.4); Neutrophils # (auto) 8.26 K/uL (1.40-6.50); Neutrophils % (auto) 70.2 %; Platelet Count 298 K/uL (130-400); RDW Coefficient of Variation 12.5 % (11.5-14.5); RDW Standard Deviation 42.9 fL (36.4-46.3); Red Blood Count 4.67 M/uL (4.20-5.40); White Blood Count 11.78 K/ul (4.8-10.8)
[2024-06-02 07:46] LABS: Base Excess VBG 0.3 mEq/L; HCO3 VBG 25 mmol/L; Oxygen Saturation VBG 71.1 %; PCO2 VBG 38 mmHg (38-50); PO2 VBG 43 mmHg; pH VBG 7.42 (7.36-7.41)
[2024-06-02 07:47] LABS: Prothrombin Time 10.7 Seconds (9.0-12.0)
[2024-06-02 07:59] LABS: Albumin Globulin Ratio 1.1 (0.9-2); BUN Creatinine Ratio 37.3 (10-20); Bilirubin,Total 0.8 mg/dl (0.2-1.0); Calcium 9.1 mg/dl (8.6-10.3); Creatinine Clr Calc Pharmacy 53.8 ml/min; Globulin 3.6 gm/dl (2.5-4.0); Magnesium 2.2 mg/dl (1.7-2.4); Potassium 3.3 mmol/L (3.5-5.1); Total Protein 7.6 gm/dl (6.0-8.3)
[2024-06-02 08:05] LABS: Troponin I High Sensitivity 24.6 pg/ml (0-14)
[2024-06-02 08:14] LABS: Thyroid Stimulating Hormone 1.349 uIu/ml (0.300-4.500)
--- NOTE | 2024-06-02 08:23 | CT Scan Report ---
CT angio neck with con CLINICAL HISTORY: AMS, R weak, nonverbal TECHNIQUE: CT angiography of the neck was performed following intravenous administration of iodinated contrast. Coronal and sagittal MIPS were obtained from the axial data set and were submitted for rev iew. Automated dose lowering techniques and/or adjustment according to patient size were utilized fo r this examination. All measurements were calculated based on NASCET criteria. CT DOSE: 912.41 mGy.cm Comparison: None available at the time of this dictation. FINDINGS: Lungs and soft tissues are unremarkable. CTA Neck: A 3 vessel aortic arch is shown. There is no significant atherosclerotic plaque in the aor tic arch or the origins of the innominate, left common carotid, and left subclavian arteries. The co mmon carotid, external carotid, cervical segments of the internal carotid arteries, and the cervical segments of the vertebral arteries are patent without hemodynamically significant stenosis. The left vertebral artery is dominant. IMPRESSION: 1. No occlusion, hemodynamically significant stenosis, or dissection in the major cervical arteries. Assessment of stenosis of the internal carotid arteries is based on NASCET criteria. ACT 112: Negative or not required by law. Electronically signed by: Arnulfo iNce M.D. 06/02/2024 8:21 AM
--- NOTE | 2024-06-02 08:23 | XRay Report ---
XR chest 1V portable CLINICAL HISTORY: weakness TECHNIQUE: Single frontal radiograph of the chest was obtained. Comparison: Comparison is made to chest radiograph 08/17/2022 FINDINGS: No lines and tubes are seen. The aorta is tortuous. The remainder of the cardiomediastinal silhouette is unremarkable. Atelectasis is in the right lower lung. No evidence of pleural effusion or pneumoth orax. IMPRESSION: Atelectasis is seen without other acute abnormality. ACT 112: Negative or not required by law. Electronically signed by: Arnulfo Nice M.D. 06/02/2024 8:22 AM
[2024-06-02 08:28] LABS: Adenovirus PCR Not Detected (NotDetected); Bordetella parapertussis PCR Not Detected (NotDetected); Bordetella pertussis PCR Not Detected (NotDetected); Chlamydia pneumoniae PCR Not Detected (NotDetected); Coronavirus 229E PCR Not Detected (NotDetected); Coronavirus CoV-2 (COVID19)PCR Not Detected (NotDetected); Coronavirus HKU1 PCR Not Detected (NotDetected); Coronavirus NL63 PCR Not Detected (NotDetected); Coronavirus OC43PCR Not Detected (NotDetected); Human Metapneumovirus PCR Not Detected (NotDetected); Influenza A PCR Not Detected (NotDetected); Influenza B PCR Not Detected (NotDetected); Mycoplasma pneumoniae PCR Not Detected (NotDetected); Parainfluenza Virus 1 PCR Not Detected (NotDetected); Parainfluenza Virus 2 PCR Not Detected (NotDetected); Parainfluenza Virus 3 PCR Not Detected (NotDetected); Parainfluenza Virus 4 PCR Not Detected (NotDetected); Respiratory Syncytial VirusPCR Not Detected (NotDetected); Rhinovirus/Enterovirus PCR Not Detected (NotDetected)
--- NOTE | 2024-06-02 08:28 | CT Scan Report ---
CT OF THE HEAD WITHOUT CONTRAST CLINICAL HISTORY: AMS, R weak, nonverbal COMPARISON STUDY: Head CT August 17, 2022. MRI of the brain December 08, 2022. TECHNIQUE: Helical axial images of the head were obtained without IV contrast. Automated exposure con trol was utilized for the study. A dose lowering technique was utilized adhering to the principles o f ALARA. Due to technical difficulties, request for interpretation was made at 8:05 AM on June 02, 2024. FINDINGS: No acute intracranial hemorrhage is present. The ventricular system is unremarkable. Basal cisterns are patent. There are no extra axial collections. A 4.3 x 3.3 cm hypodense focus with loss o f matias-white differentiation within the left occipital lobe on image 13 is new since prior head CT an d MRI. There is associated hypodensity within the medial left temporal lobe, likely involving the hip pocampus. A 1.7 x 1.4 cm left thalamic hypodense focus is also new. There is no significant mass effe ct. A 1.5 x 0.9 cm hypodense focus within the central aspect of the mary ann on image 9 is more defined t rivers on prior exam. IMPRESSION: 1. No acute intracranial hemorrhage. 2. 4.3 x 3.3 cm hypodense focus with loss of matias-white differentiation within the left occipital lob e and hypodensity within the medial left temporal lobe. 1.7 x 1.4 cm left thalamic hypodense focus. T hese are consistent with acute infarcts. Findings discussed with Dr. Sims at time of dictation. 3. 1.5 x 0.9 cm hypodense focus within the central aspect of the mary ann. This could represent an additi onal acute infarct or small vessel disease. ACT 112: Negative or not required by law. Z Electronically signed by: Real Edwards M.D. 06/02/2024 8:25 AM
--- NOTE | 2024-06-02 08:33 | CT Scan Report ---
CTA ANGIOGRAPHY OF THE HEAD CLINICAL HISTORY: AMS, R weak, nonverbal COMPARISON STUDY: Head CT August 17, 2022. MRI of the brain December 08, 2022. TECHNIQUE: Helical axial images of the head were obtained following uneventful intravenous administr ation of 120 cc of Optiray. Sagittal and coronal reconstructions were viewed as well as maximal inten sity projections on an independent 3-D workstation. Automated exposure control was utilized for the study. A dose lowering technique was utilized adhering to the principles of ALARA. Due to technical difficulties, request for interpretation was made at 8:05 AM on June 02, 2024. FINDINGS: Please note that the noncontrast head CT will be reported separately. No acute intracranial hemorrhage. Left AUTOMOTIVE DRIVABILITY TECHNICIAN distribution infarcts involving the left temporal and occipital lobes are denny r depicted on the head CT. There is also a left thalamic infarct. The bilateral M1, M2, A1 and A2 seg ments are patent. No vessel cut off within the anterior circulation is present. The left vertebral ar narinder is dominant. The basilar artery is patent. There is trace flow within the left posterior cerebra l artery. There may be clot within this vessel. The right posterior cerebral artery is unremarkable. There is no intracranial aneurysm. IMPRESSION: 1. Trace flow within the left posterior cerebral artery. The findings are suspicious for clot and wou ld account for the acute appearing left AUTOMOTIVE DRIVABILITY TECHNICIAN distribution infarct shown on the noncontrast head CT. Fi ndings discussed with Dr. Sims at time of dictation. 2. Otherwise, patent vessels. No intracranial aneurysms. ACT 112: Negative or not required by law. Electronically signed by: Real Edwards M.D. 06/02/2024 8:32 AM
--- NOTE | 2024-06-02 08:48 | History & Physical Report ---
Date of Service June 02, 2024 Assessment & Plan (1) Comfort measures only status: Plan: Patient found with AMS at 0545 on the morning of 06/[address] with pinpoint pupils Head CT on arrival is consistent with acute left CHRONOMETER ASSEMBLER territory infarct involving the left temporal occipital region, left thalamus, with possible additional pontine infarct Head CTA revealed trace flow within the left posterior cerebral artery suspicious for clot Neck CTA unremarkable ED spoke with telestroke Unknown last known well, as patient was acting strange yesterday Patient is reportedly not a TNKase or thrombectomy candidate ASA 300mg DE x 1 in the ED Discussed case with [facility] Discussed findings with patient's sons who report the patient would not want escalation of care/aggressive measures in the event of clinical deterioration Both sons are in agreement and desire to have her brought into the hospital on comfort measures only (2) Acute CVA (cerebrovascular accident): (3) Alzheimer's dementia: (4) Hypokalemia: (5) AMS (altered mental status): Plan Disposition: Admit to [facility] on PERSONAL COMPUTER NETWORK ANALYST Comfort measures only DNR/DNI History of Present Illness Chief Complaint: Stroke/CVA Primary Care Provider: Rosas Green MD Sri is a 78-year-old female with PMH of Alzheimer's dementia, cerebral microvascular disease, migraine with aura, hypothyroidism, and osteoporosis. She presented via EMS from [facility] on 06/02 after staff found her this morning with altered mental status around 0545. Per EMS report, patient reportedly had pinpoint pupils and snoring respirations this morning. She has a underlying history of dementia, but reportedly is able to carry on conversations at baseline; she was nonverbal this morning and groaning. Nursing staff reported that she was able to follow some commands on arrival, but had an episode of incontinence. Patient is unable to provide a history at time of admission. She is hypertensive at 163/94 and mildly bradycardic at 58 bpm at time of consult for admission. ED course: Solu-Medrol 125 mg IV Aspirin 300 mg DE Unable to obtain ROS at this time. Spoke to 2 of the patient's 3 sons on the phone (Chris and Hank): Provided update regarding initial head CT imaging and admission status. Informed sons that this is a very large area of the brain that has been affected by her stroke, and that the odds of a meaningful recovery are poor. Did present the option for transfer to [facility] for a neuro ICU if aggressive measures were desired. Discussed possible sequela, which could include things such as cerebral edema or hemorrhagic transformation. At time of admission, both sons are in agreement that the patient would not want aggressive measures done if she were to clinically deteriorate. Patient reportedly does have an advanced directive with a DNR/DNI, and sons report that she would not want tubing feed or intubation under any circumstances. Both sons desire to have her brought in on comfort measures only at this time. Additionally, it should be noted that the patient's recently passed 1 month ago. Her son (Chris) reports he is her current medical proxy. Allergies Allergy/AdvReac Type Severity Reaction Status Date / Time Sulfa (Sulfonamide Allergy Severe THROAT Verified 03/08/24 15:58 Antibiotics) CLOSING shellfish derived Allergy Intermediate RASH,HIVES, Verified 03/08/24 15:58 DIARRHEA house dust Allergy Cough Verified 03/08/24 15:58 diphenhydramine AdvReac Intermediate vomits Verified 03/08/24 15:58 [From Advil PM] ibuprofen [From Advil PM] AdvReac Intermediate vomits Verified 03/08/24 15:58 sulindac AdvReac Intermediate "SORE Verified 03/08/24 15:58 THROAT" Home Medications Medication Instructions Recorded Confirmed Type calcium 500 mg-vitamin D3 500 1 tab PO QPM 05/11/19 06/02/24 History unit-vitamin K 40 mcg chewable tablet cholecalciferol (vitamin D3) 50 50 mcg PO QPM 12/18/22 06/02/24 History mcg (2,000 unit) tablet magnesium chloride 71.5 mg 71.5 mg PO QPM 12/18/22 06/02/24 History (magnesium chloride) tablet,delayed release (Slow-Mag) multivitamin 1 tab PO QPM 12/18/22 06/02/24 History albuterol sulfate 90 mcg/actuation 2 puff inhalation Q4H PRN 04/28/23 06/02/24 Rx aerosol inhaler (ProAir HFA) shortness of breath or wheezing #18 grams vitamin B complex 1 cap PO DAILY 06/26/23 06/02/24 History acetaminophen 650 mg 650 mg PO DAILY #90 tabs 01/28/24 06/02/24 Rx tablet,extended release (Tylenol 8 Hour) aspirin 81 mg tablet,delayed 81 mg PO QAM #90 tabs 01/28/24 06/02/24 Rx release calcium carbonate (Tums Ultra) 400 mg PO DAILY #90 tabs 01/28/24 06/02/24 Rx ibuprofen 125 mg-acetaminophen 250 3 tab PO BID #270 tabs 01/28/24 06/02/24 Rx mg tablet (Advil Dual Action) ibuprofen 200 mg tablet (Advil) 200 mg PO QAM #90 tabs 01/28/24 06/02/24 Rx levothyroxine 88 mcg tablet 88 mcg PO QAM #90 tabs 01/28/24 06/02/24 Rx melatonin 5 mg tablet 5 mg PO HS PRN sleep #90 tabs 01/28/24 06/02/24 Rx lwdloygu-eils-qlbw 8 mg-folic 400 1 tab PO QAM #90 tabs 01/28/24 06/02/24 Rx mcg-K 50 mcg-lutein 300 mcg tablet (Centrum Silver Women) rosuvastatin 5 mg tablet 5 mg PO HS #90 tabs 01/28/24 06/02/24 Rx diclofenac sodium 1 % topical gel 4 g topical QID #100 grams 02/25/24 06/02/24 Rx Past Med/Surg History Problem List (Updated 06/02/24 @ 10:39 by Trevor Mo PA-C) Comfort measures only status Hypokalemia Acute CVA (cerebrovascular accident) (Acute) AMS (altered mental status) (Acute) Alzheimer's dementia Glenohumeral arthritis History of colon polyps Cerebral microvascular disease Memory change Cerumen in auditory canal on examination Encounter for pre-operative examination Fall (Acute) Degenerative scoliosis Chronic right sacroiliac joint pain Dysmetabolic syndrome X (Acute) Hyperglycemia Common migraine without aura (Acute) Depression with anxiety (Acute) Extrinsic asthma (Acute) inhaler prn Allergic rhinitis Insomnia Hypothyroidism Osteoporosis Medical History Closed right femoral fracture (08/17/22) History of colon polyps Diverticulosis Dementia Osteoarthritis Hearing deficit Panic attacks Surgical History History of left cataract surgery History of hip surgery History of surgery History of tooth extraction Hx of colonoscopy (2018) Family History Aunt Breast cancer Mother Cancer Father Prostate cancer Diabetes Hypertension Grandmother (Paternal) Myocardial infarction Other No family history of adverse response to anesthesia Denies family history of Ovarian cancer Social History Smoking Status: Unknown if ever smoked Second Hand Exposure: No; Do You Dip or Chew Tobacco: No; Preferred Language: Bahamian Communication Ability: Effective Communication Ability Comment: pt has dimmala/pt Hunter MORRIS and will be here dos. Visual Impairment: No Limitations Hearing Ability: Use of Hearing Aid Convenience Store Clerk Required: No Beliefs That Will Affect Care: None marital status: Current Living Situation: Personal Care Facility current occupational status: retired Feels Safe at Home: Yes Childhood Exposure to Second-Hand Smoke: No Dental Care, Regularly: Yes Physical Activity Frequency: 3-4 Times per Week Seatbelt Use: always Sunscreen Use: No Assistive Devices: Glasses, Hearing Aid - Bilateral and Walker Review of Systems Review of Systems: See HPI above Physical Exam Physical Exam: General: no acute distress; lethargic; non-verbal; frail appearing; SpO2 95% on RA HEENT: normocephalic, atraumatic; pupils are pinpoint and only mildly respond to light; unable to assess EOMs; unable to assess vision and hearing Neck: supple; trachea midline Skin: warm, dry without signs of tenting; no cyanosis; no rashes, bruising, lesions, or erythema noted CV: chest wall NTP; RRR around 60 bpm; S1/S2 normal; no murmurs/rubs/gallops; pulses intact and symmetric at radial, DP, and PT Lungs: Snoring respirations; no acute respiratory distress; symmetrical chest wall expansion; clear breath sounds across all lung baig w/o adventitious sounds; no wheezing ABD: Soft, NTP; BS present; no rebound/guarding; no distention MSK: no tics or fasciculations; no edema noted in the LEs b/l, nonerythematous; patient does not squeeze fingers upon command - 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 Neuro: Patient does not respond to sternal rub or painful stimuli; patient is not alert and oriented to name//location/purpose in hospital; however, patient is able to hold up her left leg and left arm when asked, leaving it unclear if she is able to respond to commands; positive pronator drift, as patient is unable to hold up her right arm; unable to assess sensation Results & Data Results & Data Vital Signs (Past 12 Hours) Vital Signs Temp Pulse Resp BP Pulse Ox O2 Del Method 06/02/24 08:15 55 L 16 96 Room Air 06/02/24 08:00 55 L 17 117/69 96 Room Air 06/02/24 07:48 56 L 16 94 Room Air 06/02/24 07:32 62 20 167/65 H 94 Room Air 06/02/24 07:26 65 06/02/24 07:24 64 21 93 Room Air 06/02/24 07:14 63 17 190/92 H 94 Room Air 06/02/24 07:09 Room Air 06/02/24 07:02 36.6 C 77 20 124/96 94 Room Air Laboratory Results Abnormal lab results 06/02/24 06/02/24 Range/Units 06:50 07:24 WBC 11.78 H (4.8-10.8) K/ul Neut # (Auto) 8.26 H (1.40-6.50) K/uL [place] # (Auto) 1.30 H (0.11-0.59) K/uL VBG pH 7.42 H (7.36-7.41) Potassium 3.3 L (3.5-5.1) mmol/L BUN 25 H (6-23) mg/dl BUN/Creatinine Ratio 37.3 H (10-20) Troponin I High Sens 24.6 H (0-14) pg/ml Diagnostic Findings Chest X-Ray 06/02/24 06:52 XR chest 1V portable CLINICAL HISTORY: weakness TECHNIQUE: Single frontal radiograph of the chest was obtained. Comparison: Comparison is made to chest radiograph 08/17/2022 FINDINGS: No lines and tubes are seen. The aorta is tortuous. The remainder of the cardiomediastinal silhouette is unremarkable. Atelectasis is in the right lower lung. No evidence of pleural effusion or pneumothorax. IMPRESSION: Atelectasis is seen without other acute abnormality. ACT 112: Negative or not required by law. Electronically signed by: Arnulfo Nice M.D. 06/02/2024 8:[address] 06/02/24 06:56 CT OF THE HEAD WITHOUT CONTRAST CLINICAL HISTORY: AMS, R weak, nonverbal COMPARISON STUDY: Head CT August 17, 2022. MRI of the brain December 08, 2022. TECHNIQUE: Helical axial images of the head were obtained without IV contrast. Automated exposure control was utilized for the study. A dose lowering technique was utilized adhering to the principles of ALARA. Due to technical difficulties, request for interpretation was made at 8:05 AM on June 02, 2024. FINDINGS: No acute intracranial hemorrhage is present. The ventricular system is unremarkable. Basal cisterns are patent. There are no extra axial collections. A 4.3 x 3.3 cm hypodense focus with loss of matias-white differentiation within the left occipital lobe on image 13 is new since prior head CT and MRI. There is associated hypodensity within the medial left temporal lobe, likely involving the hippocampus. A 1.7 x 1.4 cm left thalamic hypodense focus is also new. There is no significant mass effect. A 1.5 x 0.9 cm hypodense focus within the central aspect of the mary ann on image 9 is more defined than on prior exam. IMPRESSION: 1. No acute intracranial hemorrhage. 2. 4.3 x 3.3 cm hypodense focus with loss of matias-white differentiation within the left occipital lobe and hypodensity within the medial left temporal lobe. 1.7 x 1.4 cm left thalamic hypodense focus. These are consistent with acute infarcts. Findings discussed with Dr. Sims at time of dictation. 3. 1.5 x 0.9 cm hypodense focus within the central aspect of the mary ann. This could represent an additional acute infarct or small vessel disease. ACT 112: Negative or not required by law. Z Electronically signed by: Real Edwards M.D. 06/02/2024 8:25 AM Head CTA 06/02/24 06:56 CTA ANGIOGRAPHY OF THE HEAD CLINICAL HISTORY: AMS, R weak, nonverbal COMPARISON STUDY: Head CT August 17, 2022. MRI of the brain December 08, 2022. TECHNIQUE: Helical axial images of the head were obtained following uneventful intravenous administration of 120 cc of Optiray. Sagittal and coronal reconstr uctions were viewed as well as maximal intensity projections on an independent 3-D workstation. Automated exposure control was utilized for the study. A dose lowering technique was utilized adhering to the principles of ALARA. Due to technical difficulties, request for interpretation was made at 8:05 AM on June 02, 2024. FINDINGS: Please note that the noncontrast head CT will be reported separately. No acute intracranial hemorrhage. Left CHRONOMETER ASSEMBLER distribution infarcts involving the left temporal and occipital lobes are better depicted on the head CT. There is also a left thalamic infarct. The bilateral M1, M2, A1 and A2 segments are patent. No vessel cut off within the anterior circulation is present. The left vertebral artery is dominant. The basilar artery is patent. There is trace flow within the left posterior cerebral artery. There may be clot within this vessel. The right posterior cerebral artery is unremarkable. There is no intracranial aneurysm. IMPRESSION: 1. Trace flow within the left posterior cerebral artery. The findings are suspicious for clot and would account for the acute appearing left CHRONOMETER ASSEMBLER distribution infarct shown on the noncontrast head CT. Findings discussed with Dr. Sims at time of dictation. 2. Otherwise, patent vessels. No intracranial aneurysms. ACT 112: Negative or not required by law. Electronically signed by: Real Edwards M.D. 06/02/2024 8:32 AM Neck CTA 06/02/24 06:56 CT angio neck with con CLINICAL HISTORY: AMS, R weak, nonverbal TECHNIQUE: CT angiography of the neck was performed following intravenous administration of iodinated contrast. Coronal and sagittal MIPS were obtained from the axial data set and were submitted for review. Automated dose lowering techniques and/or adjustment according to patient size were utilized for this examination. All measurements were calculated based on NASCET criteria. CT DOSE: 912.41 mGy.cm Comparison: None available at the time of this dictation. FINDINGS: Lungs and soft tissues are unremarkable. CTA Neck: A 3 vessel aortic arch is shown. There is no significant atherosclerotic plaque in the aortic arch or the origins of the innominate, left common carotid, and left subclavian arteries. The common carotid, external carotid, cervical segments of the internal carotid arteries, and the cervical segments of the vertebral arteries are patent without hemodynamically significant stenosis. The left vertebral artery is dominant. IMPRESSION: 1. No occlusion, hemodynamically significant stenosis, or dissection in the major cervical arteries. Assessment of stenosis of the internal carotid arteries is based on NASCET criteria. ACT 112: Negative or not required by law. Electronically signed by: Arnulfo Nice M.D. 06/02/2024 8:21 AM Code Status & VTE Plan Code Status DNR/DNI VTE Prophylaxis Plan VTE Prophylaxis will be ordered: Yes Supervising Physician Co-Signing Physician Notes I personally examined the patient and verified all alanis points of history and exam, discussed case, and agree with decision making with Asia Mo PAC patient seen multiple times todayno meaningful HPI review of systems obtainable. Nonresponsive but appears to be in no distress. HEENT normocephalic atraumatic mucous membranes moist. Breathing unlabored but somewhat snoring, no appearance of respiratory distress. cardio is regular without rubs murmurs or gallops lungs are clear right-sided weakness noted CHRONOMETER ASSEMBLER strokeunfortunately appears to be catastrophic. Comfort measures. Discussed in depth with patient's sons. Offered empathy and support. Suspect she will pass fairly quickly, did discuss the potential for long-term hospice placement should she surprisingly stabilize, but I doubt this will be the case. PG Care Time/CCT Total # of Minutes Spent Total Time Spent with Patient: Total time spent is greater than 50% in coordination of care (as documented) at patient's floor/unit and/or counseling patient: C[place] [address] INT INP/OBS CARE 3/75MIN Patient Type Established Medical Decision Making High Complexity Diagnoses Comfort measures only status Z51.5 Acute CVA (cerebrovascular accident) I63.9 Alzheimer's dementia G30.9; F02.80 Hypokalemia E87.6 AMS (altered mental status) R41.82
[2024-06-02 09:20] LABS: iSTAT Creatinine 0.7 mg/dl (0.6-1.3); iSTAT Hemoglobin 15.3 g/dl (12.0-16.0); iSTAT Ionized Calcium 1.13 mmol/l (1.12-1.32); iSTAT Potassium 3.3 mmol/L (3.3-5.0)
[2024-06-02] MEDS: ASPIRIN 300 MG SUPP PR ONE (09:32)
[2024-06-02 09:53] LABS: Appearance Urine Clear (Clear); Bilirubin Urine Negative (Negative); Blood Urine Negative (Negative); Color Urine Yellow; Glucose Urine UA Negative (Negative); Ketones Urine 1+ (Negative); Leukocyte Esterase Urine Negative (Negative); Nitrite Urine Negative (Negative); Protein Urine Negative (Negative); Specific Gravity Urine 1.037 (1.000-1.030); Urobilinogen Urine Negative (Negative); pH Urine 5.5 (4.5-7.5)
--- NOTE | 2024-06-02 10:09 | Neurology Consultation ---
Date of Consultation June 02, 2024 Assessment & Plan (1) Acute CVA (cerebrovascular accident): History of Present Illness Attending Physician: Brian Araujo DO History of Present Illness S: pt this morning sleepy and occasionally opening eyes. CT head noted for left occipital and thalamus, medial temporal area ischemic infarct. Left BANDOLEER STRAIGHTENER STAMPER nearly occluded and likely with clot. no known time of onset. Admission HPI:Sri is a 78-year-old female with PMH of Alzheimer's dementia, cerebral microvascular disease, migraine with aura, hypothyroidism, and osteoporosis. She presented via EMS from [facility] on 06/02 after staff found her this morning with altered mental status around 0545. Per EMS report, patient reportedly had pinpoint pupils and snoring respirations this morning. She has a underlying history of dementia, but reportedly is able to carry on conversations at baseline; she was nonverbal this morning and groaning. Nursing staff reported that she was able to follow some commands on arrival, but had an episode of incontinence. Patient is unable to provide a history at time of admission. She is hypertensive at 163/94 and mildly bradycardic at 58 bpm at time of consult for admission. Allergies Allergy/AdvReac Type Severity Reaction Status Date / Time Sulfa (Sulfonamide Allergy Severe THROAT Verified 03/08/24 15:58 Antibiotics) CLOSING shellfish derived Allergy Intermediate RASH,HIVES, Verified 03/08/24 15:58 DIARRHEA house dust Allergy Cough Verified 03/08/24 15:58 diphenhydramine AdvReac Intermediate vomits Verified 03/08/24 15:58 [From Advil PM] ibuprofen [From Advil PM] AdvReac Intermediate vomits Verified 03/08/24 15:58 sulindac AdvReac Intermediate "SORE Verified 03/08/24 15:58 THROAT" Home Medications Medication Instructions Recorded Confirmed Type calcium 500 mg-vitamin D3 500 1 tab PO QPM 05/11/19 03/08/24 History unit-vitamin K 40 mcg chewable tablet cholecalciferol (vitamin D3) 50 50 mcg PO QPM 12/18/22 03/08/24 History mcg (2,000 unit) tablet magnesium chloride 71.5 mg 71.5 mg PO QPM 12/18/22 03/08/24 History (magnesium chloride) tablet,delayed release (Slow-Mag) multivitamin 1 tab PO QPM 12/18/22 03/08/24 History albuterol sulfate 90 mcg/actuation 2 puff inhalation Q4H PRN 04/28/23 03/08/24 Rx aerosol inhaler (ProAir HFA) shortness of breath or wheezing #18 grams vitamin B complex 1 cap PO DAILY 06/26/23 03/08/24 History acetaminophen 650 mg 650 mg PO DAILY #90 tabs 01/28/24 03/08/24 Rx tablet,extended release (Tylenol 8 Hour) aspirin 81 mg tablet,delayed 81 mg PO QAM #90 tabs 01/28/24 03/08/24 Rx release calcium carbonate (Tums Ultra) 400 mg PO DAILY #90 tabs 01/28/24 03/08/24 Rx ibuprofen 125 mg-acetaminophen 250 3 tab PO BID #270 tabs 01/28/24 03/08/24 Rx mg tablet (Advil Dual Action) ibuprofen 200 mg tablet (Advil) 200 mg PO QAM #90 tabs 01/28/24 03/08/24 Rx levothyroxine 88 mcg tablet 88 mcg PO QAM #90 tabs 01/28/24 03/08/24 Rx melatonin 5 mg tablet 5 mg PO HS PRN sleep #90 tabs 01/28/24 03/08/24 Rx lmzlguiy-ofbx-hnzu 8 mg-folic 400 1 tab PO QAM #90 tabs 01/28/24 03/08/24 Rx mcg-K 50 mcg-lutein 300 mcg tablet (Centrum Silver Women) rosuvastatin 5 mg tablet 5 mg PO HS #90 tabs 01/28/24 03/08/24 Rx diclofenac sodium 1 % topical gel 4 g topical QID #100 grams 02/25/24 03/08/24 Rx cefdinir 300 mg capsule 300 mg PO BID #10 caps 02/26/24 03/08/24 Rx Patient History Medical History Closed right femoral fracture (08/17/22) History of colon polyps Diverticulosis Dementia Osteoarthritis Hearing deficit Panic attacks Surgical History History of left cataract surgery History of hip surgery History of surgery History of tooth extraction Hx of colonoscopy (2017) Family History Aunt Breast cancer Mother Cancer Father Prostate cancer Diabetes Hypertension Grandmother (Paternal) Myocardial infarction Other No family history of adverse response to anesthesia Denies family history of Ovarian cancer Social History Smoking Status: Unknown if ever smoked Second Hand Exposure: No; Do You Dip or Chew Tobacco: No; Hx Alcohol Use: No Hx Substance Use: No Preferred Language: Chinese Communication Ability: Effective Communication Ability Comment: pt has dimentia/pt Hunter MORRIS and will be here dos. Visual Impairment: No Limitations Hearing Ability: Use of Hearing Aid Hiv Cts Specialist Required: No Beliefs That Will Affect Care: None marital status: Current Living Situation: Spouse current occupational status: retired Feels Safe at Home: Yes Childhood Exposure to Second-Hand Smoke: No Dental Care, Regularly: Yes Physical Activity Frequency: 3-4 Times per Week Seatbelt Use: always Sunscreen Use: No Assistive Devices: Glasses, Hearing Aid - Bilateral and Walker Review of Systems Review of Systems: All systems reviewed & are unremarkable except as noted in Subjective Constitutional: as per Subjective / HPI Eyes: as per Subjective / HPI Ear, Nose, Mouth, Throat: as per Subjective / HPI Respiratory: as per Subjective / HPI Cardiovascular: as per Subjective / HPI Gastrointestinal: as per Subjective / HPI Musculoskeletal: as per Subjective / HPI Integumentary: as per Subjective / HPI Neurologic: as per Subjective / HPI Psychiatric: as per Subjective / HPI Endocrine: as per Subjective / HPI Hematologic / Lymphatic: as per Subjective / HPI Allergy / Immunological: as per Subjective / HPI Exam (Neuro) Physical Exam: Neuro: Mental: drowsy, nonverbal, does not follow command, some simple motor command following. CN: pupils 2 mm b/l and does react to light b/l. symmetric face, Motor: No abnormal movements Coord:unable to test DTR: 1+ sym b/l Impression: 78 yo female with known dementia, with unknown time of onset for aphasia and change in mental status in setting of large left side BANDOLEER STRAIGHTENER STAMPER infarct with Left BANDOLEER STRAIGHTENER STAMPER clot. Per family discussion with ED, she is DNR/DNI and does not want any aggressive measure. Pt is not candidate for tPA or thrombectomy. Family discussing possible comfort measure. Recommendations: 1. Standard stroke work up as planned 2. antiplatelet therapy: * DAPT (dual antiplatelet therapy): start for pts with ABCD2 score 4 or higher. Initial loading dose with ASA 325mg and Plavix 300mg (if pt has not been started), then ASA 81mg daily and Plavix 75mg daily. Continue DAPT for 21 days if found small vessel disease only or continue for 90 days if found to have intracranial large artery atherosclerosis. After that, can continue single antiplatelet therapy (either ASA or Plavix). 3. Images: MRI brain (stroke protocol), TTE with bubble 4. Permissive Hypertension for next 24-4 8 hrs. Keep SBP goal range less than 220. Avoid hypotension. Do not stop beta-ruth if on it. 5. If noted for large intracranial vesse l stenosis, slow reduction of BP and allowing permissive HTN next 5-7 days. 6. Long-term SBP goal less than 130. 7. Plenty of hydration including IV flui d if possible (use isotonic solution) next 1-2 days. Avoid hypovolemia and hypotension. 8. Initiate DVT prevention therapy. 9. Avoid hypoglycemia, serum glucose goa l during hospitalization: 140-180. 10. Long-term HgA1c goal less than 7. 11. Start statin if not on it and no abs olute contraindication, long-term LDL goal less than 70. 12. Head of bed up 30 degrees if possibl e. 14. Telemetry monitoring. Consider shelter cardiac monitoring, i.e. MCOT (mobile cardiac outpatient telemetry) or ICM (insertable cardiac cath technician, e.g. LINQ), if never had shelter cardiac monitoring done previously. And if found to have atrial flutter or fibrillation, should consider anticoagulation therapy if no contraindication. 15. Fall precaution and aspiration preca ution. 16. Consult physical and occupational th erapy and speech path evaluation. 17. consider nutritional consult please call again if pt's status changes or new question. Chart reviewed I have spent more than 50% educating patient about potential diagnosis and neurological evaluation and coordinating care with patient's treatment team. Total time spent (including chart review and coordination of care):55 min (this includes chart review). Results & Data Vital Signs (Past 12 Hours) Vital Signs Temp Pulse Resp BP Pulse Ox O2 Del Method 06/02/24 09:30 73 18 93 Room Air 06/02/24 09:09 73 19 134/72 93 Room Air 06/02/24 08:30 58 L 19 163/94 H 95 Room Air 06/02/24 08:15 55 L 16 96 Room Air 06/02/24 08:00 55 L 17 117/69 96 Room Air 06/02/24 07:48 56 L 16 94 Room Air 06/02/24 07:32 62 20 167/65 H 94 Room Air 06/02/24 07:26 65 06/02/24 07:24 64 21 93 Room Air 06/02/24 07:14 63 17 190/92 H 94 Room Air 06/02/24 07:09 Room Air 06/02/24 07:02 36.6 C 77 20 124/96 94 Room Air PG Care Time/CCT Total # of Minutes Spent Total Time Spent with Patient: Total time spent is greater than 50% in coordination of care (as documented) at patient's floor/unit and/or counseling patient: Coding Level of Care Code 39299 IN/OBS CONSULT LVL 3,45M Diagnoses Acute CVA (cerebrovascular accident) I63.9
[2024-06-02] MEDS ORDERED: ONDANSETRON INJ 2 MG/ML 2 ML VIAL IV PRN (10:35)
[2024-06-02 14:02] VITALS: BP 146/91; PULSE 68; RESP 20; O2SAT 95
[2024-06-02] MEDS: LORazepam 2 MG/1 ML VIAL IV PRN (14:54)
[2024-06-02] MEDS: GLYCOPYRROLATE 0.2 MG/ML VIAL IV PRN (14:54)
[2024-06-03] MEDS: MoRPHine SULFATE 2 MG/ML CARP IV PRN (02:22)
--- NOTE | 2024-06-03 13:17 | Electrocardiogram Report ---
Test Reason : Blood Pressure : */* mmHG Vent. Rate : 68 BPM Atrial Rate : 68 BPM P-R Int : 148 ms QRS Dur : 84 ms QT Int : 388 ms P-R-T Axes : 48 5 20 degrees QTcB Int : 412 ms Normal sinus rhythm Possible Left atrial enlargement Nonspecific ST and T wave abnormality Abnormal ECG When compared with ECG of 17-Aug-2022 10:24, Questionable change in QRS axis Nonspecific T wave abnormality now evident in Anterolateral leads Confirmed by Rosas Flores ([id number]) on 06/03/2024 1:17:35 PM Referred By: REFERRED SELF Confirmed By: Rosas Flores
--- NOTE | 2024-06-03 18:00 | Hospitalist Progress Note ---
Date of Service June 03, 2024 Assessment & Plan (1) Comfort measures only status: Plan: Catastrophic HUMAN MACHINE INTERFACE ENGINEER stroke with profound disabilityessentially has been unresponsive since coming to the hospital. She is on comfort measures only. Sons have been present. Offering empathy and support. Fortunately has not needed much for comfort care, but has needed some. I anticipate she will likely pass in the hospital. (2) Acute CVA (cerebrovascular accident): (3) Alzheimer's dementia: (4) Hypokalemia: (5) AMS (altered mental status): Plan Disposition: Admit to [facility] on TEXTILE MACHINE OPERATOR Comfort measures only DNR/DNI Admission and Anticipated Discharge Date Admission Date: June 02, 2024 Subjective No meaningful HPI review of systems. Sons present. Updated. Offered empathy and support. Physical Exam Physical Exam: In bed nonresponsive but does not appear to be in distress. Somewhat rapid respirationsbut more consistent with her severity of AUTOMOTIVE PAINTER injury. Ongoing right-sided neurodeficits appear consistent with yesterday. Results & Data Results & Data Vital Signs (Past 12 Hours) Vital Signs O2 Del Method O2 Flow Rate 06/03/24 08:00 Nasal Cannula 2 PG Care Time/CCT Total # of Minutes Spent Total Time Spent with Patient: Total time spent is greater than 50% in coordination of care (as documented) at patient's floor/unit and/or counseling patient: Coding Level of Care Code 23759 SUB INP/OBS CARE 3/50MIN Diagnoses Comfort measures only status Z51.5 Acute CVA (cerebrovascular accident) I63.9 Alzheimer's dementia G30.9; F02.80 Hypokalemia E87.6 AMS (altered mental status) R41.82
[2024-06-03] MEDS: MoRPHine SULFATE 2 MG/ML CARP IV STA (23:30)
--- NOTE | 2024-06-04 08:55 | Discharge Summary ---
Discharge Summary Date of Service June 04, 2024 Principal Dx & Hospital Course #1 = Principal Diagnosis (1) Comfort measures only status: Catastrophic NET MENDER stroke with profound disabilityessentially was unresponsive since coming to the hospital. She was made comfort measures only. Sons have been present. Offered empathy and support. Passed peacefully this a.m. Son, Mosque, notified. He noted he would inform his brothers. 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 She presented via EMS from [facility] on 06/02 after staff found her this morning with altered mental status around 0545. Per EMS report, patient reportedly had pinpoint pupils and snoring respirations this morning. She has a underlying history of dementia, but reportedly is able to carry on conversations at baseline; she was nonverbal this morning and groaning. Nursing staff reported that she was able to follow some commands on arrival, but had an episode of incontinence. Patient is unable to provide a history at time of admission. She is hypertensive at 163/94 and mildly bradycardic at 58 bpm at time of consult for admission. ED course: Solu-Medrol 125 mg IV Aspirin 300 mg TX Unable to obtain ROS at this time. Spoke to 2 of the patient's 3 sons on the phone (Mosque and Hank): Provided update regarding initial head CT imaging and admission status. Informed sons that this is a very large area of the brain that has been affected by her stroke, and that the odds of a meaningful recovery are poor. Did present the option for transfer to [facility] for a neuro ICU if aggressive measures were desired. Discussed possible sequela, which could include things such as cerebral edema or hemorrhagic transformation. At time of admission, both sons are in agreement that the patient would not want aggressive measures done if she were to clinically deteriorate. Patient reportedly does have an advanced directive with a DNR/DNI, and sons report that she would not want tubing feed or intubation under any circumstances. Both sons desire to have her brought in on comfort measures only at this time. Additionally, it should be noted that the patient's recently passed 1 month ago. Her son (Mosque) reports he is her current medical proxy. Discharge Exam No response to verbal or noxious stimuli.No heart tones or pulses, no breath sounds or spontaneous respirations. Pupils fixed. Time of 8:40 AM, 06/04/2024. Updated Medication List Medication Instructions Recorded Confirmed Type calcium 500 mg-vitamin D3 500 1 tab PO QPM 05/11/19 06/02/24 History unit-vitamin K 40 mcg chewable tablet cholecalciferol (vitamin D3) 50 50 mcg PO QPM 12/18/22 06/02/24 History mcg (2,000 unit) tablet magnesium chloride 71.5 mg 71.5 mg PO QPM 12/18/22 06/02/24 History (magnesium chloride) tablet,delayed release (Slow-Mag) multivitamin 1 tab PO QPM 12/18/22 06/02/24 History albuterol sulfate 90 mcg/actuation 2 puff inhalation Q4H PRN 04/28/23 06/02/24 Rx aerosol inhaler (ProAir HFA) shortness of breath or wheezing #18 grams vitamin B complex 1 cap PO DAILY 06/26/23 06/02/24 History acetaminophen 650 mg 650 mg PO DAILY #90 tabs 01/28/24 06/02/24 Rx tablet,extended release (Tylenol 8 Hour) aspirin 81 mg tablet,delayed 81 mg PO QAM #90 tabs 01/28/24 06/02/24 Rx release calcium carbonate (Tums Ultra) 400 mg PO DAILY #90 tabs 01/28/24 06/02/24 Rx ibuprofen 125 mg-acetaminophen 250 3 tab PO BID #270 tabs 01/28/24 06/02/24 Rx mg tablet (Advil Dual Action) ibuprofen 200 mg tablet (Advil) 200 mg PO QAM #90 tabs 01/28/24 06/02/24 Rx levothyroxine 88 mcg tablet 88 mcg PO QAM #90 tabs 01/28/24 06/02/24 Rx melatonin 5 mg tablet 5 mg PO HS PRN sleep #90 tabs 01/28/24 06/02/24 Rx vsgzhxif-wgco-kjkq 8 mg-folic 400 1 tab PO QAM #90 tabs 01/28/24 06/02/24 Rx mcg-K 50 mcg-lutein 300 mcg tablet (Centrum Silver Women) rosuvastatin 5 mg tablet 5 mg PO HS #90 tabs 01/28/24 06/02/24 Rx diclofenac sodium 1 % topical gel 4 g topical QID #100 grams 02/25/24 06/02/24 Rx Hospital Stay Data Consultations 06/02/24 09:07 ED Decision to Admit Stat Diagnostic Imagining Performed 06/02/24 06:56 CT angio head w con Stat CT angio neck with con Stat CT head/brain wo con Stat Total Time Total Time Spent Total Time Spent (In Minutes): <30
--- NOTE | 2024-06-04 12:31 | Billing Data ---
Date of Service June 04, 2024 Coding Level of Care Code 49087 IN/OBS DISCH 30 MIN/LESS
== END 2024-06-04 11:24 | disposition expired | DRG 66 ==
LOC: SUATTDRO → ED 06:47 → EDINP 10:35 → 3E 14:05